=== PATIENT | female | born 1950 | race African-American/Black ===

== ENCOUNTER 2017-02-14 16:29 | Inpatient (IN) | payer MEDICARE, MEDICAID ==
[2017-02-14] MEDS ORDERED: DEXTROSE 50%-WATER SYRINGE 12.5 GM/25 ML DOSE IV PRN (17:55)
[2017-02-14] MEDS ORDERED: DEXTROSE 40% GEL 15 GM TUBE PO PRN (17:55)
[2017-02-14] MEDS ORDERED: DEXTROSE 50%-WATER SYRINGE 25 GM/50 ML DOSE IV PRN (17:55)
[2017-02-14] MEDS ORDERED: DEXTROSE 40% GEL 15 GM TUBE X 2 PO PRN (17:55)
[2017-02-14] MEDS ORDERED: GLUCAGON,HUMAN RECOMB 1 MG INJ IM PRN (17:55)
--- NOTE | 2017-02-14 18:17 | RADIOLOGY REPORT (SQ) ---
EXAM DESCRIPTION: CHEST PA/LAT COMPLETED DATE/TIME: 02/14/2017 6:06 pm REASON FOR STUDY: Afib sob COMPARISON: 05/02/2010 EXAM PARAMETERS: NUMBER OF VIEWS: two views TECHNIQUE: Digital Frontal and Lateral radiographic views of the chest acquired. RADIATION DOSE: NA LIMITATIONS: none FINDINGS: LUNGS AND PLEURA: Small pleural effusions are present. No infiltrate appreciated. MEDIASTINUM AND HILAR STRUCTURES: No masses or contour abnormalities. HEART AND VASCULAR STRUCTURES: Heart size borderline. Mild vascular congestion. No pulmonary edema. BONES: No acute findings. HARDWARE: None in the chest. OTHER: No other significant finding. IMPRESSION: Borderline cardiomegaly with small pleural effusions. There is no chen CHF. TECHNICAL DOCUMENTATION: JOB ID: [id number] [employer]- All Rights Reserved
--- NOTE | 2017-02-14 18:31 | PDOC CONSULTATION ---
Consultation Consult Date: 02/14/17 Attending physician:: NESSA HA Consult reason:: Bradycardia, CHF, atrial fibrillation History of Present Illness Admission Date/PCP: 02/14/17 16:29 NESSA HA Patient complains of: Shortness of breath History of Present Illness: JAVID VARGAS is a 66 year old female who has noted shortness of breath fatigue and tiredness for last several days which has progressively gotten worse. Patient was seen for this reason at her primary care physician's office where an EKG was performed which showed atrial fibrillation. Patient also had BioZ test performed which showed low cardiac output. Patient subsequently admitted. Patient was noted to be bradycardic with heart rate in the low 50s. Patient has noted intermittent dizziness but denied any syncope or near syncope. On questioning she did admit to having occasional tightness in the chest. Patient does have occasional wheezing but denied any history of smoking , alcohol or illicit drug abuse. Patient has noted some pedal edema. Patient denied any significant weight gain recently but claims that recently she has lost some weight. Past Medical History Cardiac Medical History: Reports: Hyperlipidema, Hypertension Denies: Myocardial Infarction Pulmonary Medical History: Denies: Asthma, Bronchitis, Chronic Obstructive Pulmonary Disease (COPD), Pneumonia Neurological Medical History: Denies: Seizures Endocrine Medical History: Reports: Diabetes Mellitus Type 2 Musculoskeltal Medical History: Denies: Arthritis Psychiatric Medical History: Denies: Depression Hematology: Reports: Anemia Past Surgical History Past Surgical History: Reports: Hysterectomy Social History Information Source: Patient - Negative for tobacco alcohol or illicit drug abuse. Smoking Status: Never Smoker Frequency of Alcohol Use: None Hx Recreational Drug Use: No Hx Prescription Drug Abuse: No - Advance Directive Resuscitation Status: Full Code Surrogate healthcare decision maker:: Patient's daughter is the surrogate decision-maker Family History Family History: Hypertension Parental Family History Reviewed: Yes Children Family History Reviewed: Yes Sibling(s) Family History Reviewed.: Yes Medication/Allergy Home Medications: Amlodipine Besylate [Norvasc 10 mg Tablet] 10 mg PO DAILY 02/15/17 Aspirin [Ecotrin 81 mg EC Tablet] 81 mg PO DAILY 02/15/17 Atorvastatin Calcium [Lipitor 40 mg Tablet] 40 mg PO QHS 02/15/17 Cholecalciferol (Vitamin D3) [Vitamin D3] 1,000 unit PO DAILY 02/15/17 Cyanocobalamin (Vitamin B-12) [Vitamin B-12 Inj 1000 Mcg/1 ml Vial] 1,000 mcg IM .MONTHLY 02/15/17 Hydrochlorothiazide [Hydrodiuril 25 mg Tablet] 25 mg PO QAM 02/15/17 Insulin Detemir [Levemir Insulin 300 Units/3 ml Insuln.pen] 15 unit SUBCUT QPM 02/15/17 Insulin Detemir [Levemir Insulin 300 Units/3 ml Insuln.pen] 30 unit SUBCUT QAM 02/15/17 Melatonin 1 mg PO HSP PRN 02/15/17 Metformin HCl [Glucophage] 1,000 mg PO BIDBS 02/15/17 Allergies/Adverse Reactions: No Known Allergies Allergy (Verified 02/09/17 19:00) Review of Systems Review of Systems: Please see history of present illness and past medical history as wall. Constitutional: No fever or chills reported. Head : No recent chronic headaches, recent head injury. Eyes: No recent eye pain, diplopia, redness, discharge, acute visual changes. Ears: No recent chronic ear pain, acute hearing loss, ear discharge. Oral cavity: No recent ulcerations, bleeding, oral cavity discomfort. Neck: No recent acute neck pain reported. Hematologic: No recent easy bruising or bleeding or hematologic malignancy reported. Lymphatic: No recent lymphatic malignancy, chronic lymphadenopathy reported yet Cardiovascular system review: See history of present illness. Respiratory system review: No recent chronic cough, hemoptysis, blood clots in the lungs reported. Shortness of breath on exertion Gastrointestinal system review: Negative for any recent acute or chronic abdominal pain, hematemesis, melena, recent change in bowel habits. Genitourinary system review: No recent acute or chronic hematuria, flank pain, UTI etc. reported. Skin system review: Negative for any recent abnormal bruising, no rash, no pruritus reported. Neurologic: No prior history of strokes, mini strokes, seizure disorder. Psychologic: No history of major psychosis or major depression reported. Musculoskeletal: Minor aches and pains reported. No acute joint swelling reported. Endocrine: No recent polyuria, polydipsia, recent heat or cold intolerance. Physical Exam Vital Signs: Temp Pulse Resp BP Pulse Ox 98.3 F 49 L 18 158/65 H 97 02/14/17 16:51 02/14/17 16:51 02/14/17 16:51 02/14/17 16:51 02/14/17 16:51 Intake & Output 02/13/17 02/14/17 02/15/17 06:59 06:59 06:59 Weight 128.9 kg Exam: GENERAL: well-nourished and in no acute distress. Alert and oriented x3 HEAD: Atraumatic, normocephalic. EYES: Pupils equal round and reactive to light, extraocular movements intact, sclera anicteric, conjunctiva are normal. ENT: TMs normal, nares patent, oropharynx clear without exudates. Moist mucous membranes. No oral ulcerations or bleeding gums noted NECK: supple without lymphadenopathy. Trachea is central. No cervical or axillary lymphadenopathy noted. Carotids are 2+, JVD WNL LUNGS: Respiration seems nonlabored, no significant accessory muscle action noted. Breath sounds clear to auscultation bilaterally and equal noted. No wheezes rales or rhonchi noted. No significant dullness noted on percussion. CHEST: Palpation of the chest wall shows no significant chest wall tenderness. No other significant abnormalities noted. 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 ABDOMEN: Soft, no significant tenderness appreciated, normoactive bowel sounds. No guarding, no rebound. No rigidity noted . No masses appreciated. EXTREMITIES: Pedal pulses are 1-2+, no calf tenderness noted. No clubbing or cyanosis.trace to 1+ pedal edema noted NEUROLOGICAL: Focused neurological exam showed no significant neurologic deficit. Normal speech, no focal weakness appreciated. PSYCH: Normal mood, normal affect. Judgment and insight within normal limits. SKIN: No significant ecchymosis, rash, ulcerations or signs of pruritus noted. MUSCULOSKELETAL EXAM: No significant joint swelling noted. Results EKG Comments: Atrial fibrillation with somewhat slow heart rate response but no acute ST-T wave changes noted. Impressions: Chest X-Ray 02/14/17 00:00 IMPRESSION: Borderline cardiomegaly with small pleural effusions. There is no chen CHF. Assessment & Plan - Diagnosis (1) Bradycardia Is this a current diagnosis for this admission?: Yes (2) Atrial fibrillation Qualifiers: Atrial fibrillation type: unspecified Qualified Code(s): I48.91 - Unspecified atrial fibrillation Is this a current diagnosis for this admission?: Yes (3) Hypertension Qualifiers: Hypertension type: essential hypertension Qualified Code(s): I10 - Essential (primary) hypertension Is this a current diagnosis for this admission?: Yes (4) Dyslipidemia Is this a current diagnosis for this admission?: Yes (5) Obesity Qualifiers: Obesity classification: unspecified obesity classification Is this a current diagnosis for this admission?: Yes (6) Sleep apnea syndrome Qualifiers: Sleep apnea type: unspecified type Qualified Code(s): G47.30 - Sleep apnea , unspecified Is this a current diagnosis for this admission?: Yes (7) Diabetes Qualifiers: Diabetes mellitus type: type 2 Diabetes mellitus complication status: without complication Diabetes mellitus correction insulin use: unspecified customer associate insulin use status Qualified Code(s): E11.9 - Type 2 diabetes mellitus without complications Is this a current diagnosis for this admission?: Yes (8) Chest discomfort Is this a current diagnosis for this admission?: Yes (9) Congestive heart failure Qualifiers: Congestive heart failure type: diastolic Congestive heart failure chronicity: acute Qualified Code(s): I50.31 - Acute diastolic (congestive) heart failure Is this a current diagnosis for this admission?: Yes - Notes Notes: Bradycardia: Currently mild. Continue to observe. Sometimes sleep apnea syndrome can increase vagal tone and cause bradycardia. TSH WNL. Atrial fibrillation: Most likely chronic but unspecified, possibly chronic. A 2D echo results has been scheduled. Patient is a good candidate for chronic anticoagulation based on chads score. Patient started on Eliquis therapy. Continue with it. Hypertension: BP goal should be 135/85 or less. Currently is stable. Dyslipidemia: LDL goal is less than 70. Recommend statin therapy at least intermediate or high dose, of high potency status. Periodic lipid panel and liver panel is indicated. Patient to report any significant muscle discomfort or other side effects.. Obesity: Patient has been encouraged in weight loss. Sleep apnea syndrome: Patient describes a diagnosis of this but has not been on CPAP therapy for several years. Discussed benefit of sleep apnea therapy. Diabetes: Currently is stable. 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 Chest discomfort: Currently stable. Cardiac enzymes initially 1's are negative. To be evaluated with a nuclear stress test. Congestive heart failure: Diastolic most likely precipitated by volume overload and atrial fibrillation. 2D echocardiogram results are pending. IV Lasix 20 mg ordered. To be switched over to p.o. after adequate response is obtained. - Time Time Spent: 30 to 50 Minutes - CODE STATUS was discussed, patient remains full code. Surrogate decision-maker unchanged. Multiple medical problems were addressed. More than 50% of the time spent coordinating care, discussing management plans with involved caregivers. Management plans discussed with involved personnels. Medical decision making was of moderate to high complexity , patient's has multiple comorbidities. Medications reviewed and adjusted accordingly: Yes
--- NOTE | 2017-02-14 18:47 | EKG REPORT ---
SEVERITY:- ABNORMAL ECG - ATRIAL FIBRILLATION BORDERLINE LEFT AXIS DEVIATION ABNRM R PROG, CONSIDER ASMI OR LEAD PLACEMENT NONSPECIFIC T ABNORMALITIES, LATERAL LEADS : Confirmed by: Tanner Rhodes MD 14-Feb-2017 18:46:45
[2017-02-14 19:10] LABS: ABSOLUTE EOSINOPHILS # (AUTO) 0.1 10^3/uL (0.0-0.6); ABSOLUTE LYMPHOCYTES (AUTO) 1.7 10^3/uL (0.5-4.7); ABSOLUTE MONOCYTES (AUTO) 0.7 10^3/uL (0.1-1.4); ABSOLUTE NEUT (AUTO) 6.6 10^3/uL (1.7-8.2); BASOPHILS % (AUTO) 0.4 % (0-2); HEMATOCRIT 39.8 % (36.0-47.0); HEMOGLOBIN 12.9 g/dL (12.0-15.5); HGB HCT DIFFERENCE -1.1; LYMPHOCYTES % (AUTO) 18.8 % (13-45); MEAN CORPUSCULAR HEMOGLOBIN 26.3 pg (27.0-33.4); MEAN CORPUSCULAR HGB CONC 32.5 g/dL (32.0-36.0); MEAN CORPUSCULAR VOLUME 81 fl (80-97); MONOCYTES % (AUTO) 7.3 % (3-13); RED BLOOD COUNT 4.92 10^6/uL (3.72-5.28); RED CELL DISTRIBUTION WIDTH 18.3 % (11.5-14.0); SEGMENTED NEUTROPHILS % (AUTO) 72.5 % (42-78); WHITE BLOOD COUNT 9.1 10^3/uL (4.0-10.5)
[2017-02-14 19:28] LABS: ALANINE AMINOTRANSFERASE 28 U/L (9-52); ALBUMIN 3.8 g/dL (3.5-5.0); ALKALINE PHOSPHATASE 110 U/L (38-126); ANION GAP 12 (5-19); ASPARTATE AMINO TRANSFERASE 21 U/L (14-36); BILIRUBIN,DIRECT 0.4 mg/dL (0.0-0.4); BILIRUBIN,TOTAL 0.8 mg/dL (0.2-1.3); BLOOD UREA NITROGEN 13 mg/dL (7-20); CALCIUM 9.7 mg/dL (8.4-10.2); CARBON DIOXIDE 31 mmol/L (22-30); CHLORIDE 100 mmol/L (98-107); CREATINE KINASE 82 U/L (30-135); CREATININE RESULT 1.12 mg/dL (0.52-1.25); GLUCOSE 105 mg/dL (75-110); POTASSIUM 3.4 mmol/L (3.6-5.0); SODIUM 143.4 mmol/L (137-145); TOTAL PROTEIN 7.1 g/dL (6.3-8.2)
--- NOTE | 2017-02-14 19:30 | PDOC H&P ---
History of Present Illness Admission Date/PCP: 02/14/17 16:29 NESSA LELAND Patient complains of: Shortness of breath History of Present Illness: JAVID VARGAS is a 66 year old female known to my practice who presented too the office for routine follow up management of her comorbidities but narrated worsening difficulty with breathing with minimal exertion. Patient reported that ordinary walking or climbing stairs caused her shortness of breath to be more noticeable. Patient reported been on holiday recently with exposure to cigarette smoke and subsequently have been short of breath. She denied any prior history or exposure to cigarette smoking. Shew denied any alcohol or recreational drug usage. She reported episodes of wheezing, postural dizziness, chest tightness, and noted some degree of swelling in her legs. In view of her symptoms constellation she had 12 lead EKG in the office that revealed atrial fibrillation with bradycardia. Also, her impedence cardiograph revealed significantly elevated blood pressure, impaired cardiac indices and elevated peripheral vascular resistance. She was subsequently advised hospitalization for further evaluation and management. Past Medical History Cardiac Medical History: Reports: Hyperlipidema, Hypertension Denies: Myocardial Infarction Pulmonary Medical History: Denies: Asthma, Bronchitis, Chronic Obstructive Pulmonary Disease (COPD), Pneumonia Neurological Medical History: Denies: Seizures Endocrine Medical History: Reports: Diabetes Mellitus Type 2 Musculoskeltal Medical History: Denies: Arthritis Psychiatric Medical History: Denies: Depression Hematology: Reports: Anemia Past Surgical History Past Surgical History: Reports: Hysterectomy Social History Smoking Status: Never Smoker Frequency of Alcohol Use: None Hx Recreational Drug Use: No Hx Prescription Drug Abuse: No - Advance Directive Resuscitation Status: Full Code Family History Family History: Hypertension Parental Family History Reviewed: Yes Children Family History Reviewed: Yes Sibling(s) Family History Reviewed.: Yes Medication/Allergy Home Medications: Aspirin [Anupama Chewable] 81 mg PO DAILY 06/22/13 Cyanocobalamin (Vitamin B-12) [Vitamin B-12] 100 mcg IM Q30MP 06/22/13 Hydrochlorothiazide 25 mg PO DAILY 06/22/13 Insulin Detemir [Levemir Insulin 100 units/mL] 16 units SUBCUT QHS 06/22/13 Insulin Detemir [Levemir Insulin 100 units/mL] 30 units SUBCUT QAM 06/22/13 Lisinopril [Prinivil 40 mg Tablet] 40 mg PO DAILY 06/22/13 Metformin HCl [Glucophage] 1,000 mg PO BID 06/22/13 Multivitamin [Multi Vitamin Daily] 1 tab PO DAILY 06/22/13 Simvastatin 20 mg PO QHS 06/22/13 Diphenhydramine HCl [Benadryl 50 mg Capsule] 1 cap PO Q6 PRN #14 capsule Promethazine HCl [Phenergan 25 mg Tablet] 25 mg PO Q4HP PRN #10 tablet 02/09/17 Allergies/Adverse Reactions: No Known Allergies Allergy (Verified 02/09/17 19:00) Review of Systems Constitutional: ABSENT: chills, fever(s), headache(s), weight gain, weight loss Eyes: ABSENT: visual disturbances Ears: ABSENT: hearing changes Nose, Mouth, and Throat: ABSENT: headache(s), sore throat, vertigo Cardiovascular: PRESENT: dyspnea on exertion, edema, other - chest tightness Respiratory: PRESENT: dyspnea. ABSENT: as per HPI, cough, hemoptysis, sputum, other Gastrointestinal: ABSENT: abdominal pain, constipation, diarrhea, hematemesis, hematochezia, nausea, vomiting Musculoskeletal: ABSENT: joint swelling Integumentary: ABSENT: rash, wounds Neurological: PRESENT: dizziness. ABSENT: as per HPI, abnormal gait, abnormal movements, abnormal speech, confusion, convulsions, focal weakness, frequent falls, lack of coordination, memory loss, numbness, paresthesias, restless legs , syncope, tingling, tremor(s), vertigo, weakness, other Psychiatric: ABSENT: anxiety, depression, homidical ideation, suicidal ideation Endocrine: PRESENT: menstrual abnormalities. ABSENT: cold intolerance, heat intolerance, polydipsia, polyuria Hematologic/Lymphatic: ABSENT: easy bleeding, easy bruising, lymphadenopathy Allergic/Immunologic: ABSENT: seasonal rhinorrhea Physical Exam Vital Signs: Temp Pulse Resp BP Pulse Ox 98.3 F 49 L 18 158/65 H 97 02/14/17 16:51 02/14/17 16:51 02/14/17 16:51 02/14/17 16:51 02/14/17 16:51 Intake & Output 02/13/17 02/14/17 02/15/17 06:59 06:59 06:59 Intake Total 247 Balance 247 Weight 128.9 kg General appearance: PRESENT: no acute distress, morbidly obese Head exam: PRESENT: atraumatic, normocephalic Eye exam: PRESENT: conjunctiva pink, EOMI, PERRLA. ABSENT: scleral icterus Ear exam: PRESENT: normal external ear exam Mouth exam: PRESENT: moist, tongue midline Throat exam: ABSENT: post pharyngeal erythema, tonsillar erythema, tonsillar exudate, tonsillogmegaly, other Neck exam: PRESENT: full ROM. ABSENT: carotid bruit, JVD, lymphadenopathy, thyromegaly Respiratory exam: PRESENT: clear to auscultation khushbu, decreased breath sounds Cardiovascular exam: PRESENT: bradycardia, irregular rhythm, +S1, +S2, systolic murmur Murmur grade: 2 - loudest at A2 and LLSB regions Pulses: PRESENT: normal dorsalis pedis pul, +2 pedal pulses bilateral Vascular exam: PRESENT: normal capillary refill GI/Abdominal exam: PRESENT: normal bowel sounds, soft. ABSENT: distended, guarding, mass, organolmegaly, rebound, tenderness Rectal exam: PRESENT: deferred Gentrourinary exam: ABSENT: ecchymosis, erythema, lacerations, lesions, urethral discharge, indwelling catheter, other Extremities exam: PRESENT: pedal edema - bilateral 2+ pitting edema to below knee joint level Musculoskeletal exam: PRESENT: deformity - related to multiple jpints involvement with arthriis Neurological exam: PRESENT: alert, awake, oriented to person, oriented to place , oriented to time, oriented to situation, CN II-XII grossly intact. ABSENT: motor sensory deficit Psychiatric exam: PRESENT: appropriate affect, normal mood. ABSENT: homicidal ideation, suicidal ideation Skin exam: PRESENT: dry, intact, warm. ABSENT: cyanosis, rash Results Laboratory Results: Pending lab results at the time of my bedside consultation. Impressions: Chest X-Ray 02/14/17 00:00 IMPRESSION: Borderline cardiomegaly with small pleural effusions. There is no chen CHF. Assessment & Plan - Diagnosis (1) Atrial fibrillation Qualifiers: Atrial fibrillation type: unspecified Qualified Code(s): I48.91 - Unspecified atrial fibrillation Is this a current diagnosis for this admission?: Yes Plan: See admitting attending physician orders. (2) Dyspnea on exertion Is this a current diagnosis for this admission?: Yes Plan: See admitting attending physician orders. (3) Bradycardia Is this a current diagnosis for this admission?: Yes Plan: See admitting attending physician orders. (4) Chest discomfort Is this a current diagnosis for this admission?: Yes Plan: See admitting attending physician orders. (5) Diabetes mellitus type 2 in obese Is this a current diagnosis for this admission?: Yes Plan: See admitting attending physician orders. (6) HTN (hypertension) Qualifiers: Hypertension type: essential hypertension Qualified Code(s): I10 - Essential (primary) hypertension Is this a current diagnosis for this admission?: Yes Plan: See admitting attending physician orders. (7) HLD (hyperlipidemia) Qualifiers: Hyperlipidemia type: pure hypercholesterolemia Qualified Code(s): E78.00 - Pure hypercholesterolemia, unspecified; E78.0 - Pure hypercholesterolemia Is this a current diagnosis for this admission?: Yes Plan: See admitting attending physician orders. (8) Morbid obesity with BMI of 45.0-49.9, adult Is this a current diagnosis for this admission?: Yes Plan: See admitting attending physician orders. (9) Sleep apnea syndrome Qualifiers: Sleep apnea type: unspecified type Qualified Code(s): G47.30 - Sleep apnea , unspecified Is this a current diagnosis for this admission?: Yes Plan: See admitting attending physician orders. - Time Time Spent: Greater than 70 Minutes Medications reviewed and adjusted accordingly: Yes Anticipated discharge: Home Within: within 48 hours - Inpatient Certification Post Hospital Care: D/C Hand Coremaker Documentation - Plan Summary Plan Summary: See admitting attending physician orders. Significant amount was in care coordination ad discussion with patient regarding her medication condition and possible etiologies, necessary treatment with regard to atrial fibrillation and anticoagulation therapy. Patient is not very much in agreement with full admission at this time. If her condition arise I will change her status to full admission. I will request cardiology consultation with Dr Valverde.
[2017-02-14 19:41] LABS: CREATINE KINASE MB 0.51 ng/mL (<4.55); TROPONIN I 0.015 ng/mL
[2017-02-14] MEDS ORDERED: FUROSEMIDE INJ/PF 20 MG/2 ML SDV IV ONE (20:00)
[2017-02-14 20:36] LABS: PROTHROMBIN TIME 13.6 SEC (11.4-15.4)
[2017-02-14] MEDS: APIXABAN 5 MG TABLET PO SCH (22:09)
[2017-02-15 01:29] LABS: CREATINE KINASE MB 0.65 ng/mL (<4.55); TROPONIN I 0.058 ng/mL
[2017-02-15 07:30] LABS: CHOLESTEROL 156.38 mg/dL (0-200); Direct HDL 36 mg/dL (>40); TRIGLYCERIDES 90 mg/dL (<150)
[2017-02-15 07:40] LABS: DIRECT LDL 107 mg/dL (<100)
[2017-02-15 07:41] LABS: CREATINE KINASE MB 0.56 ng/mL (<4.55); TROPONIN I 0.047 ng/mL
[2017-02-15] MEDS: LANSOPRAZOLE 30 MG TAB.RAP.DR PO SCH (08:59)
[2017-02-15] MEDS: VALSARTAN 40 MG TABLET PO SCH (11:00)
[2017-02-15] MEDS: APIXABAN 5 MG TABLET PO SCH ×2 (11:01→22:36)
[2017-02-15] MEDS: FUROSEMIDE 40 MG TABLET PO SCH (11:01)
[2017-02-15] MEDS: POTASSIUM CHLORIDE 20 MEQ/15 ML UDCUP PO SCH ×2 (11:01→22:35)
[2017-02-15] MEDS ORDERED: (PENDING PHARMACY ID) (Melatonin [Melatonin] 1 MG) PO PRN (11:09)
[2017-02-15] MEDS ORDERED: AMINOPHYLLINE INJ/PF 250 MG/10 ML SDV IV ONE (11:52)
[2017-02-15] MEDS ORDERED: REGADENOSON INJ 0.4 MG/5 ML DISP.SYRIN IV ONE (11:52)
[2017-02-15] MEDS ORDERED: ASPIRIN 81 MG TABLET, ENT COATED PO ONE (12:00)
[2017-02-15] MEDS ORDERED: HYDROCHLOROTHIAZIDE 25 MG TABLET PO ONE (12:00)
[2017-02-15] MEDS ORDERED: CHOLECALCIFEROL (D3) 1,000 UNIT TABLET PO ONE (12:00)
[2017-02-15] MEDS ORDERED: AMLODIPINE BESYLATE 10 MG TABLET PO ONE (12:00)
[2017-02-15] MEDS ORDERED: SITAGLIPTIN PHOSPHATE 50 MG TABLET PO ONE (12:00)
--- NOTE | 2017-02-15 15:34 | DRAGON STRESS TEST REPORT ---
INTRAVENOUS LEXISCAN CARDIOLITE STRESS TEST USING SINGLE PHOTON EMMISION COMPUTERIZED TOMOGRAPHIC. DATE OF PROCEDURE: February 15, 2017 INDICATION : Atrial fibrillation and dyspnea CARDIAC RISK FACTORS: Diabetes, hypertension RESTING EKG: Atrial fibrillation with minor nonspecific ST T-wave changes STRESS EKG: No significant changes noted with LexiScan bolus REASON FOR TERMINATION: Protocol. PROCEDURE REPORT: Baseline heart rate 62 beats per minute with blood pressure of 153/70. Patient had no significant complaints. Heart rate at 2 minutes post bolus 66 with a blood pressure of 187/82. 3 minutes post bolus heart rate 66 with blood pressure of 181/81. No significant EKG changes were noted. Patient had no significant complaints during the procedure or postprocedure. Patient injected with Aminophyllin 75 mg at 3 minutes or later after Lexiscan bolus. CONCLUSIONS: Normal EKG and hemodynamic response to IV LexiScan. NUCLEAR DATA: At rest the patient was given 15.81 millicuries of technetium 99 sestamibi injected intravenously. As per protocol rest gated SPECT images were obtained. Subsequently the patient was given intravenous LexiScan at a dose of 0.4 mg in 5 mL intravenously, followed by flush with normal saline. Subsequently the stress dose of 45.9 millicuries of technetium 99 sestamibi was injected intravenously. As per protocol stress gated images were obtained. NUCLEAR INTERPRETATION: Both raw and processed data were used for interpretation. Visual, qualitative, computer-generated quantitative data was used. There was good myocardial uptake of technetium compound. Motion artifact and soft tissue attenuations were noted. Increased visceral uptake was noted. No definitive areas of transient perfusion defect noted. No definitive areas of fixed perfusion defect or scars noted. Marked increased breast attenuation artifact were noted which cause difficulty with interpretation of anterior wall perfusion. EKG gated imaging showed LV EF at 62 %, rest and stress gated EF similar visually. T. I D. ratio was 1.02. Lung heart ratio noted to be within normal limits 0.53. No significant extracardiac and abnormal radiotracer activities were noted. RV free wall uptake was noted to be borderline increased. IMPRESSION: Also refer to comments under nuclear interpretation. Also test results needs to be interpreted in the context of pretest probability. Low confidence on anterior wall perfusion because of marked increased breast attenuation artifact. However following observations can be made. 1. There is no definitive scintigraphic evidence of LexiScan induced myocardial ischemia. 2. There is no definitive scintigraphic evidence of myocardial infarction/scar. 3. EKG gated imaging shows left ventricular ejection fraction of approximately 62 %. 4. Lung uptake was noted to be increased. This could be related to interstitial lung disease, CHF. Would recommend CT/CTA of the chest. 4. Clinical correlation requested as occasionally single vessel disease or balanced ischemia could be missed. In approximately 10% of the cases Lexiscan may not cause adequate vasodilatory stress. RECOMMENDATIONS: Aggressive risk factor modification, medical therapy. Clinical correlation with echocardiogram derived ejection fraction. Inability to exercise by itself can lead to increased cardiovascular event risks. Jae Valverde M.D., [facility]PITALSandra Cartography/Mapping Technician dance director, Board certified in cardiovascular diseases, Nuclear cardiology, Echocardiography Cardiac CT and cardiac MRI Ph. [phone] [facility]
[2017-02-15] MEDS: METFORMIN HCL 500 MG TABLET PO SCH (17:28)
--- NOTE | 2017-02-15 17:29 | PDOC PROGRESS REPORT ---
Subjective Progress Note for:: 02/15/17 Subjective:: Patient reported some improvement in her breathing but most at rest. Her cardiac enzymes evaluation did revealed slight indeterminate range Troponin level. Her cadiolite stress test was suggestive of possible interstitial lung disease versus CHF due to more than necessary isotope uptake. She denied any definite chest pain. No nausea or vomiting. No abdominal pain. No reported fever or chills. Physical Exam Vital Signs: Temp Pulse Resp BP Pulse Ox 97.9 F 50 L 18 181/69 H 99 02/15/17 11:22 02/15/17 11:22 02/15/17 11:22 02/15/17 11:22 02/15/17 11:22 Intake & Output 02/14/17 02/15/17 02/16/17 06:59 06:59 06:59 Intake Total 249 Balance 249 Weight 129.6 kg General appearance: PRESENT: no acute distress, morbidly obese Head exam: PRESENT: atraumatic, normocephalic Eye exam: PRESENT: conjunctiva pink, EOMI, PERRLA. ABSENT: scleral icterus Respiratory exam: PRESENT: clear to auscultation khushbu Cardiovascular exam: PRESENT: irregular rhythm, +S1, +S2, systolic murmur Murmur grade: 2 - loudest at A2 and LLSB regions GI/Abdominal exam: PRESENT: normal bowel sounds, soft. ABSENT: distended, guarding, mass, organolmegaly, rebound, tenderness Extremities exam: PRESENT: pedal edema - improving bilateral 1+ pitting edema. Musculoskeletal exam: PRESENT: deformity - related to multiple joints involvememt with arthritis Neurological exam: PRESENT: alert, awake, oriented to person, oriented to place , oriented to time, oriented to situation, CN II-XII grossly intact. ABSENT: motor sensory deficit Psychiatric exam: PRESENT: appropriate affect, normal mood. ABSENT: homicidal ideation, suicidal ideation Skin exam: PRESENT: dry, intact, warm. ABSENT: cyanosis, rash Results Laboratory Results: 02/14/17 18:50 02/14/17 18:50 02/14/17 02/14/17 02/14/17 18:50 18:50 18:50 WBC 9.1 RBC 4.92 Hgb 12.9 Hct 39.8 MCV 81 MCH 26.3 L MCHC 32.5 RDW 18.3 H Plt Count 287 Seg Neutrophils % 72.5 Lymphocytes % 18.8 Monocytes % 7.3 Eosinophils % 1.0 Basophils % 0.4 Absolute Neutrophils 6.6 Absolute Lymphocytes 1.7 Absolute Monocytes 0.7 Absolute Eosinophils 0.1 Absolute Basophils 0.0 Sodium 143.4 Potassium 3.4 L Chloride 100 Carbon Dioxide 31 H Anion Gap 12 BUN 13 Creatinine 1.12 Est GFR ( Amer) 59 L Est GFR (Non-Af Amer) 49 L Glucose 105 Calcium 9.7 Total Bilirubin 0.8 AST 21 ALT 28 Alkaline Phosphatase 110 Total Protein 7.1 Albumin 3.8 Triglycerides Cholesterol LDL Cholesterol Direct VLDL Cholesterol HDL Cholesterol TSH 0.94 02/15/17 06:35 WBC RBC Hgb Hct MCV MCH MCHC RDW Plt Count Seg Neutrophils % Lymphocytes % Monocytes % Eosinophils % Basophils % Absolute Neutrophils Absolute Lymphocytes Absolute Monocytes Absolute Eosinophils Absolute Basophils Sodium Potassium Chloride Carbon Dioxide Anion Gap BUN Creatinine Est GFR ( Amer) Est GFR (Non-Af Amer) Glucose Calcium Total Bilirubin AST ALT Alkaline Phosphatase Total Protein Albumin Triglycerides 90 Cholesterol 156.38 LDL Cholesterol Direct 107 H VLDL Cholesterol 18.0 HDL Cholesterol 36 L TSH 02/14/17 02/14/17 02/14/17 18:50 18:50 18:50 Creatine Kinase 82 CK-MB (CK-2) 0.51 Troponin I 0.015 NT-Pro-B Natriuret Pep 979 H 02/15/17 02/15/17 02/15/17 00:42 00:42 06:35 Creatine Kinase 80 70 CK-MB (CK-2) 0.65 Troponin I 0.058 NT-Pro-B Natriuret Pep 02/15/17 06:35 Creatine Kinase CK-MB (CK-2) 0.56 Troponin I 0.047 NT-Pro-B Natriuret Pep Impressions: Chest X-Ray 02/14/17 00:00 IMPRESSION: Borderline cardiomegaly with small pleural effusions. There is no chen CHF. Assessment & Plan - Diagnosis (1) Atrial fibrillation Qualifiers: Atrial fibrillation type: unspecified Qualified Code(s): I48.91 - Unspecified atrial fibrillation Is this a current diagnosis for this admission?: Yes (2) Dyspnea on exertion Is this a current diagnosis for this admission?: Yes (3) Bradycardia Is this a current diagnosis for this admission?: Yes (4) Chest discomfort Is this a current diagnosis for this admission?: Yes (5) Diabetes mellitus type 2 in obese Is this a current diagnosis for this admission?: Yes (6) HTN (hypertension) Qualifiers: Hypertension type: essential hypertension Qualified Code(s): I10 - Essential (primary) hypertension Is this a current diagnosis for this admission?: Yes (7) HLD (hyperlipidemia) Qualifiers: Hyperlipidemia type: pure hypercholesterolemia Qualified Code(s): E78.00 - Pure hypercholesterolemia, unspecified; E78.0 - Pure hypercholesterolemia Is this a current diagnosis for this admission?: Yes (8) Morbid obesity with BMI of 45.0-49.9, adult Is this a current diagnosis for this admission?: Yes (9) Sleep apnea syndrome Qualifiers: Sleep apnea type: unspecified type Qualified Code(s): G47.30 - Sleep apnea , unspecified Is this a current diagnosis for this admission?: Yes - Time Time Spent with patient: 25-34 minutes Medications reviewed and adjusted accordingly: Yes Anticipated discharge: Home Within: Other - Inpatient Certification Based on my medical assessment, after consideration of the patient's comorbidities, presenting symptoms, or acuity I expect that the services needed warrant INPATIENT care.: Yes I certify that my determination is in accordance with my understanding of Medicare's requirements for reasonable and necessary INPATIENT services [42 CFR 412.3e].: Yes Medical Necessity: Need Close Monitoring Due to Risk of Patient Decompensation, Need For Continuous Telemetry Monitoring, Risk of Complication if Not Cared For in Hospital Post Hospital Care: D/C Production Coordinator Documentation - Plan Summary Plan Summary: D/C HCTZ and Amlodipine in view of her persistent bradycardia. She will continue on Valsartan and Furosemide for HTN management. She will remain on all other current medication management. We will follow up on requested CTA chest for further evaluation of her abnormal stress test isotope findings. Monitor and adjust Valsartan dosage if her blood pressure is elevated. Obtain BMP in am.
--- NOTE | 2017-02-15 17:57 | RADIOLOGY REPORT (SQ) ---
EXAM DESCRIPTION: CTA CHEST COMPLETED DATE/TIME: 02/15/2017 5:17 pm REASON FOR STUDY: Atrial fibrillation, chest pain R07.9 CHEST PAIN, UNSPECIFIED R53.82 CHRONIC FAT IGUE, UNSPECIFIED R06.09 OTHER FORMS OF DYSPNEA COMPARISON: None. TECHNIQUE: CT scan of the chest performed using helical scanning technique with dynamic intravenous contrast injection. Images reviewed with lung, soft tissue and bone windows. Reconstructed coronal and sagittal MPR images reviewed. Additional 3 dimensional post-processing performed to develop Maximal Intensity Projection images ([place] P). All images stored on PACS. All CT scanners at this facility use dose modulation, iterative reconstruction, and/or weight based d osing when appropriate to reduce radiation dose to as low as reasonably achievable (ALARA). [facility]: Dose Right [facility]: CareDose [facility]: Dose Right [facility]: Teradose 4D [facility]: TapMetrics CONTRAST TYPE AND DOSE: contrast/concentration: Isovue 370.00 mg/ml; Total Contrast Delivered: 86.0 ml; Total Saline Delivered: 70.0 ml Contrast bolus optimized for the pulmonary arteries. Not diagnostic for the aorta. RENAL FUNCTION: Creatinine 1.1 BUN 13 RADIATION DOSE: Up-to-date CT equipment and radiation dose reduction techniques were employed. CTDIv ol: 50.0 - 70.3 mGy. DLP: 1838 mGy-cm. . LIMITATIONS: None. FINDINGS: LUNGS AND PLEURA: Minimal pleural effusions. No infiltrates or masses. AORTA AND GREAT VESSELS: No aneurysm. Contrast bolus not optimized for the aorta. HEART: No pericardial effusion. No significant coronary artery calcifications. PULMONARY ARTERIES: No emboli visualized in the main pulmonary arteries or the segmental branches. HILAR AND MEDIASTINAL STRUCTURES: No identified masses or abnormal nodes. HARDWARE: None in the chest. UPPER ABDOMEN: No significant findings. Limited exam. THYROID AND OTHER SOFT TISSUES: No masses. No adenopathy. BONES: Bridging osteophytes in the thoracic spine. No osseous lesions. 3D MIPS: Confirm above findings. OTHER: No other significant finding. IMPRESSION: NORMAL CTA OF THE CHEST. NO PULMONARY EMBOLI. COMMENT: Quality ID # [id number]: Final reports with documentation of one or more dose reduction techniques (e.g., Automated exposure control, adjustment of the mA and/or kV according to patient size, use of iterative reconstruction technique) TECHNICAL DOCUMENTATION: JOB ID: [id number]- All Rights Reserved
[2017-02-15] MEDS ORDERED: INSULIN DETEMIR 100 UNIT/ML 3 ML PEN SUBCUT SCH (18:00)
[2017-02-15] MEDS: INSULIN LISPRO 100 UNIT/ML 3 ML VIAL SUBCUT PRN (18:15)
[2017-02-15] MEDS ORDERED: ATORVASTATIN CALCIUM 40 MG TABLET PO SCH (22:00)
[2017-02-15] MEDS: INSULIN DETEMIR 100 UNIT/ML 3 ML PEN SUBCUT SCH (22:35)
[2017-02-15] MEDS: ATORVASTATIN CALCIUM 40 MG TABLET PO SCH (22:35)
[2017-02-16] MEDS ORDERED: HYDROCHLOROTHIAZIDE 25 MG TABLET PO SCH (08:00)
[2017-02-16] MEDS: METFORMIN HCL 500 MG TABLET PO SCH ×2 (08:57→16:29)
[2017-02-16] MEDS: LANSOPRAZOLE 30 MG TAB.RAP.DR PO SCH (08:58)
[2017-02-16] MEDS: INSULIN DETEMIR 100 UNIT/ML 3 ML PEN SUBCUT SCH ×2 (08:59→21:20)
[2017-02-16] MEDS: APIXABAN 5 MG TABLET PO SCH ×2 (09:03→21:20)
[2017-02-16] MEDS: CHOLECALCIFEROL (D3) 1,000 UNIT TABLET PO SCH (09:03)
[2017-02-16] MEDS: POTASSIUM CHLORIDE 20 MEQ/15 ML UDCUP PO SCH ×2 (09:03→21:20)
[2017-02-16] MEDS: VALSARTAN 40 MG TABLET PO SCH (09:04)
[2017-02-16] MEDS: AMLODIPINE BESYLATE 10 MG TABLET PO SCH (09:04)
[2017-02-16] MEDS: FUROSEMIDE 40 MG TABLET PO SCH (09:05)
[2017-02-16] MEDS: SITAGLIPTIN PHOSPHATE 50 MG TABLET PO SCH (09:58)
[2017-02-16] MEDS ORDERED: (PENDING PHARMACY ID) (Cholecalciferol (Vitamin D3) [Vitamin D3] 1,000 UNIT) PO SCH (10:00)
[2017-02-16] MEDS ORDERED: ASPIRIN 81 MG TABLET, ENT COATED PO SCH (10:00)
[2017-02-16] MEDS ORDERED: (PENDING PHARMACY ID) (Linagliptin [Tradjenta] 5 MG) PO SCH (10:00)
--- NOTE | 2017-02-16 10:58 | PDOC PROGRESS REPORT ---
Subjective Progress Note for:: 02/15/17 Subjective:: SOB better, patient claims she felt much better after IV Lasix dose. Today to be switched to p.o. Lasix. Nuclear stress test procedure was explained to the patient in detail. Risks benefits were discussed and informed consent was obtained. Alternatives were discussed. Patient informed that based on risk factors, physical exam, lab data findings and symptoms there is at least intermediate probability of underlying CAD. Nuclear stress test procedure was therefore scheduled. Patient questions answered. Telemetry strips shows atrial fibrillation with controlled ventricular response. Physical Exam Vital Signs: Temp Pulse Resp BP Pulse Ox 97.8 F 48 L 16 151/52 H 98 02/15/17 15:20 02/15/17 15:20 02/15/17 15:20 02/15/17 15:20 02/15/17 15:20 Intake & Output 02/14/17 02/15/17 02/16/17 06:59 06:59 06:59 Intake Total 249 741 Balance 249 741 Weight 129.6 kg Exam: GENERAL: well-nourished and in no acute distress. Alert and oriented x3 HEAD: Atraumatic, normocephalic. EYES: Pupils equal round and reactive to light, extraocular movements intact, sclera anicteric, conjunctiva are normal. ENT: TMs normal, nares patent, oropharynx clear without exudates. Moist mucous membranes. No oral ulcerations or bleeding gums noted NECK: supple without lymphadenopathy. Trachea is central. No cervical or axillary lymphadenopathy noted. Carotids are 2+, JVD WNL LUNGS: Respiration seems nonlabored, no significant accessory muscle action noted. Breath sounds clear to auscultation bilaterally and equal noted. No wheezes rales or rhonchi noted. No significant dullness noted on percussion. CHEST: Palpation of the chest wall shows no significant chest wall tenderness. No other significant abnormalities noted. 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 ABDOMEN: Soft, no significant tenderness appreciated, normoactive bowel sounds. No guarding, no rebound. No rigidity noted . No masses appreciated. EXTREMITIES: Pedal pulses are 1-2+, no calf tenderness noted. No clubbing or cyanosis.trace to 1+ pedal edema noted NEUROLOGICAL: Focused neurological exam showed no significant neurologic deficit. Normal speech, no focal weakness appreciated. PSYCH: Normal mood, normal affect. Judgment and insight within normal limits. SKIN: No significant ecchymosis, rash, ulcerations or signs of pruritus noted. MUSCULOSKELETAL EXAM: No significant joint swelling noted. Results Laboratory Results: 02/14/17 18:50 02/14/17 18:50 02/15/17 06:35 Triglycerides 90 Cholesterol 156.38 LDL Cholesterol Direct 107 H VLDL Cholesterol 18.0 HDL Cholesterol 36 L 02/14/17 02/14/17 02/14/17 18:50 18:50 18:50 Creatine Kinase 82 CK-MB (CK-2) 0.51 Troponin I 0.015 NT-Pro-B Natriuret Pep 979 H 02/15/17 02/15/17 02/15/17 00:42 00:42 06:35 Creatine Kinase 80 70 CK-MB (CK-2) 0.65 Troponin I 0.058 NT-Pro-B Natriuret Pep 02/15/17 06:35 Creatine Kinase CK-MB (CK-2) 0.56 Troponin I 0.047 NT-Pro-B Natriuret Pep Impressions: Chest X-Ray 02/14/17 00:00 IMPRESSION: Borderline cardiomegaly with small pleural effusions. There is no chen CHF. Chest/Abdomen CTA 02/15/17 15:41 IMPRESSION: NORMAL CTA OF THE CHEST. NO PULMONARY EMBOLI. Assessment & Plan - Diagnosis (1) Bradycardia Is this a current diagnosis for this admission?: Yes (2) Atrial fibrillation Qualifiers: Atrial fibrillation type: unspecified Qualified Code(s): I48.91 - Unspecified atrial fibrillation Is this a current diagnosis for this admission?: Yes (3) Hypertension Qualifiers: Hypertension type: essential hypertension Qualified Code(s): I10 - Essential (primary) hypertension Is this a current diagnosis for this admission?: Yes (4) Dyslipidemia Is this a current diagnosis for this admission?: Yes (5) Obesity Qualifiers: Obesity classification: unspecified obesity classification Is this a current diagnosis for this admission?: Yes (6) Sleep apnea syndrome Qualifiers: Sleep apnea type: unspecified type Qualified Code(s): G47.30 - Sleep apnea , unspecified Is this a current diagnosis for this admission?: Yes (7) Diabetes Qualifiers: Diabetes mellitus type: type 2 Diabetes mellitus complication status: without complication Diabetes mellitus group home insulin use: unspecified intermodal owner operator truck driver insulin use status Qualified Code(s): E11.9 - Type 2 diabetes mellitus without complications Is this a current diagnosis for this admission?: Yes (8) Chest discomfort Is this a current diagnosis for this admission?: Yes - Notes Notes: Bradycardia: Stable. No sustained symptomatic bradycardia episodes noted. Continue to observe. Sometimes sleep apnea syndrome can increase vagal tone and cause bradycardia. Atrial fibrillation: Most likely chronic but unspecified, possibly chronic. 2D echo shows normal LVEF with diastolic dysfunction. Patient is a good candidate for chronic anticoagulation based on chads score. Patient on Eliquis. Hypertension: Reasonably well controlled. Blood pressure goal in this patient is 135/85 or less. This was discussed with the patient. Currently blood pressure under reasonable control. Better medication for this patient are DENZEL inhibitor/ARB/beta candi etc. discussed side effects of uncontrolled hypertension and also severe hypotension. Currently blood pressure is stable. Dyslipidemia: Hyperlipidemia: LDL goal is less than 70. Recommend statin therapy at least intermediate or high dose, of high potency status. Periodic lipid panel and liver panel is indicated. Patient to report any significant muscle discomfort or other side effects. Obesity: Patient has been encouraged in weight loss. Sleep apnea syndrome: Patient describes a diagnosis of this but has not been on CPAP therapy for several years. Discussed benefit of sleep apnea therapy. Diabetes: Currently is stable. Will leave management to studio producer. Chest discomfort: Nuclear stress test results were difficult to interpret because of body habitus. No definitive transient or fixed perfusion defect noted although anterior wall perfusion was difficult to assess. Lung heart ratio was noted to be increased and therefore patient was scheduled for a CTA of the chest. Results pending at the time of dictation. - Time Time with patient: Greater than 35 minutes - Patient was seen multiple times. Total time exceeds 40 minutes. In the morning nuclear stress test procedure, risks benefits, alternatives were discussed. Patient seen during the stress test. Patient also seen after stress test when results were discussed with the patient in detail. Patient's questions were answered. Nuclear stress test results were discussed with the patient. Patient was informed that no definitive evidence of pharmacologic stress-induced ischemia noted. No definite fixed defects were noted. Patient informed that occasionally significant single vessel disease or balanced ischemia could be missed. However based on the current study results, would recommend aggressive risk factor modification and medical therapy. It may also be worthwhile to consider evaluation or empiric management of other causes of chest pain. Should no other cause be found and if persistent in having chest pain, then cardiac catheterization should be considered. Right now, recommendations are for aggressive risk factor modification and medical management. Significant time spent discussing management plans especially discussed results of nuclear stress test, echocardiogram, atrial fibrillation management and weight loss as well as sleep apnea management. Medications reviewed and adjusted accordingly: Yes
--- NOTE | 2017-02-16 11:07 | PDOC PROGRESS REPORT ---
Subjective Progress Note for:: 02/16/17 Subjective:: SOB better, patient switched to p.o. Lasix dose. Patient denying any chest pain or shortness of breath. Patient encouraged to ambulate in the hallway. Nuclear stress test results, 2D echocardiogram results were discussed with the patient. CTA results discussed with the patient. Telemetry strips shows atrial fibrillation with controlled ventricular response. Physical Exam Vital Signs: Temp Pulse Resp BP Pulse Ox 98.3 F 57 L 18 141/68 H 95 02/16/17 07:47 02/16/17 07:47 02/16/17 07:47 02/16/17 07:47 02/16/17 07:47 Intake & Output 02/15/17 02/16/17 02/17/17 06:59 06:59 06:59 Intake Total 249 1041 Balance 249 1041 Weight 129.6 kg Exam: GENERAL: well-nourished and in no acute distress. Alert and oriented x3 HEAD: Atraumatic, normocephalic. EYES: Pupils equal round and reactive to light, extraocular movements intact, sclera anicteric, conjunctiva are normal. ENT: TMs normal, nares patent, oropharynx clear without exudates. Moist mucous membranes. No oral ulcerations or bleeding gums noted NECK: supple without lymphadenopathy. Trachea is central. No cervical or axillary lymphadenopathy noted. Carotids are 2+, JVD WNL LUNGS: Respiration seems nonlabored, no significant accessory muscle action noted. Breath sounds clear to auscultation bilaterally and equal noted. No wheezes rales or rhonchi noted. No significant dullness noted on percussion. CHEST: Palpation of the chest wall shows no significant chest wall tenderness. No other significant abnormalities noted. 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 ABDOMEN: Soft, no significant tenderness appreciated, normoactive bowel sounds. No guarding, no rebound. No rigidity noted . No masses appreciated. EXTREMITIES: Pedal pulses are 1-2+, no calf tenderness noted. No clubbing or cyanosis.trace to 1+ pedal edema noted NEUROLOGICAL: Focused neurological exam showed no significant neurologic deficit. Normal speech, no focal weakness appreciated. PSYCH: Normal mood, normal affect. Judgment and insight within normal limits. SKIN: No significant ecchymosis, rash, ulcerations or signs of pruritus noted. MUSCULOSKELETAL EXAM: No significant joint swelling noted. Results Laboratory Results: 02/14/17 18:50 02/14/17 18:50 02/14/17 02/14/17 02/14/17 18:50 18:50 18:50 Creatine Kinase 82 CK-MB (CK-2) 0.51 Troponin I 0.015 NT-Pro-B Natriuret Pep 979 H 02/15/17 02/15/17 02/15/17 00:42 00:42 06:35 Creatine Kinase 80 70 CK-MB (CK-2) 0.65 Troponin I 0.058 NT-Pro-B Natriuret Pep 02/15/17 06:35 Creatine Kinase CK-MB (CK-2) 0.56 Troponin I 0.047 NT-Pro-B Natriuret Pep EKG Comments: Telemetry strips shows atrial fibrillation, no sustained tachycardia or bradycardia arrhythmias noted. Impressions: Chest X-Ray 02/14/17 00:00 IMPRESSION: Borderline cardiomegaly with small pleural effusions. There is no chen CHF. Chest/Abdomen CTA 02/15/17 15:41 IMPRESSION: NORMAL CTA OF THE CHEST. NO PULMONARY EMBOLI. Assessment & Plan - Diagnosis (1) Bradycardia Is this a current diagnosis for this admission?: Yes (2) Atrial fibrillation Qualifiers: Atrial fibrillation type: unspecified Qualified Code(s): I48.91 - Unspecified atrial fibrillation Is this a current diagnosis for this admission?: Yes (3) Hypertension Qualifiers: Hypertension type: essential hypertension Qualified Code(s): I10 - Essential (primary) hypertension Is this a current diagnosis for this admission?: Yes (4) Dyslipidemia Is this a current diagnosis for this admission?: Yes (5) Obesity Qualifiers: Obesity classification: unspecified obesity classification Is this a current diagnosis for this admission?: Yes (6) Sleep apnea syndrome Qualifiers: Sleep apnea type: unspecified type Qualified Code(s): G47.30 - Sleep apnea , unspecified Is this a current diagnosis for this admission?: Yes (7) Diabetes Qualifiers: Diabetes mellitus type: type 2 Diabetes mellitus complication status: without complication Diabetes mellitus intermodal owner operator truck driver insulin use: unspecified intermodal owner operator truck driver insulin use status Qualified Code(s): E11.9 - Type 2 diabetes mellitus without complications Is this a current diagnosis for this admission?: Yes (8) Chest discomfort Is this a current diagnosis for this admission?: Yes (9) Congestive heart failure Qualifiers: Congestive heart failure type: diastolic Congestive heart failure chronicity: acute Qualified Code(s): I50.31 - Acute diastolic (congestive) heart failure Is this a current diagnosis for this admission?: Yes - Notes Notes: Bradycardia: Currently mild and asymptomatic. Sometimes sleep apnea syndrome can increase vagal tone and cause bradycardia. Atrial fibrillation: Most likely chronic but unspecified, possibly chronic. A 2D echo results reviewed. Continue Eliquis therapy. Rate seems reasonably well controlled. Hypertension: BP goal should be 135/85 or less. Currently is stable. Dyslipidemia: LDL goal should be less than 100. If blockages or CAD, then LDL goal should be less than 70. Obesity: Patient has been encouraged in weight loss. Sleep apnea syndrome: Patient describes a diagnosis of this but has not been on CPAP therapy for several years. Discussed benefit of sleep apnea therapy. Diabetes: Currently is stable. 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 Chest discomfort: Resolved. Patient to be managed medically with aggressive risk factor modification and medical management. Should patient has recurrent chest pain, heart catheterization should then be considered.. - Time Time with patient: Greater than 35 minutes - CTA chest results, nuclear stress test results and echocardiogram results were all discussed in detail. Risk factor modification, importance of sleep apnea therapy also discussed. CODE STATUS was discussed, patient remains full code. Surrogate decision-maker unchanged. Multiple medical problems were addressed. More than 50% of the time spent coordinating care, discussing management plans with involved caregivers. Management plans discussed with involved personnels. Medical decision making was of moderate to high complexity, patient's has multiple comorbidities. Medications reviewed and adjusted accordingly: Yes
[2017-02-16] MEDS: INSULIN LISPRO 100 UNIT/ML 3 ML VIAL SUBCUT PRN (13:07)
--- NOTE | 2017-02-16 14:56 | PDOC PROGRESS REPORT ---
Subjective Progress Note for:: 02/16/17 Subjective:: She was seen by the bedside, she has no new complaints today. Physical Exam Vital Signs: Temp Pulse Resp BP Pulse Ox 98.5 F 50 L 16 140/58 H 97 02/16/17 11:28 02/16/17 11:28 02/16/17 11:28 02/16/17 11:28 02/16/17 11:28 Intake & Output 02/15/17 02/16/17 02/17/17 06:59 06:59 06:59 Intake Total 249 1041 Balance 249 1041 Weight 129.6 kg 129.6 kg General appearance: PRESENT: no acute distress, obese Eye exam: PRESENT: PERRLA Respiratory exam: PRESENT: clear to auscultation khushbu Cardiovascular exam: PRESENT: +S1, +S2 Murmur grade: 2 - loudest at A2 and LLSB regions GI/Abdominal exam: PRESENT: soft Neurological exam: PRESENT: alert, CN II-XII grossly intact Results Laboratory Results: 02/14/17 18:50 02/14/17 18:50 02/14/17 02/14/17 02/14/17 18:50 18:50 18:50 Creatine Kinase 82 CK-MB (CK-2) 0.51 Troponin I 0.015 NT-Pro-B Natriuret Pep 979 H 02/15/17 02/15/17 02/15/17 00:42 00:42 06:35 Creatine Kinase 80 70 CK-MB (CK-2) 0.65 Troponin I 0.058 NT-Pro-B Natriuret Pep 02/15/17 06:35 Creatine Kinase CK-MB (CK-2) 0.56 Troponin I 0.047 NT-Pro-B Natriuret Pep Impressions: Chest X-Ray 02/14/17 00:00 IMPRESSION: Borderline cardiomegaly with small pleural effusions. There is no chen CHF. Chest/Abdomen CTA 02/15/17 15:41 IMPRESSION: NORMAL CTA OF THE CHEST. NO PULMONARY EMBOLI. Assessment & Plan - Diagnosis (1) Atrial fibrillation Qualifiers: Atrial fibrillation type: unspecified Qualified Code(s): I48.91 - Unspecified atrial fibrillation Is this a current diagnosis for this admission?: Yes (2) Bradycardia Is this a current diagnosis for this admission?: Yes (3) Chest discomfort Is this a current diagnosis for this admission?: Yes (4) Congestive heart failure Qualifiers: Congestive heart failure type: diastolic Congestive heart failure chronicity: acute Qualified Code(s): I50.31 - Acute diastolic (congestive) heart failure Is this a current diagnosis for this admission?: Yes (5) Diabetes mellitus type 2 in obese Is this a current diagnosis for this admission?: Yes (6) Dyslipidemia Is this a current diagnosis for this admission?: Yes (7) Dyspnea on exertion Is this a current diagnosis for this admission?: Yes - Plan Summary Plan Summary: Continue the present management plan.
[2017-02-16] MEDS: ATORVASTATIN CALCIUM 40 MG TABLET PO SCH (21:20)
[2017-02-17] MEDS: INSULIN DETEMIR 100 UNIT/ML 3 ML PEN SUBCUT SCH ×2 (08:54→21:26)
[2017-02-17] MEDS: LANSOPRAZOLE 30 MG TAB.RAP.DR PO SCH (08:54)
[2017-02-17] MEDS: METFORMIN HCL 500 MG TABLET PO SCH ×2 (08:59→18:58)
[2017-02-17] MEDS: POTASSIUM CHLORIDE 20 MEQ/15 ML UDCUP PO SCH ×2 (11:28→21:25)
[2017-02-17] MEDS: FUROSEMIDE 40 MG TABLET PO SCH (11:29)
[2017-02-17] MEDS: AMLODIPINE BESYLATE 10 MG TABLET PO SCH (11:29)
[2017-02-17] MEDS: VALSARTAN 40 MG TABLET PO SCH (11:30)
[2017-02-17] MEDS: CHOLECALCIFEROL (D3) 1,000 UNIT TABLET PO SCH (11:30)
[2017-02-17] MEDS: APIXABAN 5 MG TABLET PO SCH ×2 (11:31→21:25)
[2017-02-17] MEDS: SITAGLIPTIN PHOSPHATE 50 MG TABLET PO SCH (11:32)
--- NOTE | 2017-02-17 14:50 | PDOC PROGRESS REPORT ---
Subjective Progress Note for:: 02/17/17 Subjective:: There is no new complaints, she was seen by the bedside Physical Exam Vital Signs: Temp Pulse Resp BP Pulse Ox 98.0 F 57 L 16 141/64 H 97 02/17/17 11:53 02/17/17 11:53 02/17/17 11:53 02/17/17 11:53 02/17/17 11:53 Intake & Output 02/16/17 02/17/17 02/18/17 06:59 06:59 06:59 Intake Total 1041 1521 Balance 1041 1521 Weight 128.5 kg General appearance: PRESENT: no acute distress Eye exam: PRESENT: PERRLA Respiratory exam: PRESENT: clear to auscultation khushbu Cardiovascular exam: PRESENT: +S1, +S2 Murmur grade: 2 - loudest at A2 and LLSB regions GI/Abdominal exam: PRESENT: soft Neurological exam: PRESENT: alert, CN II-XII grossly intact Results Laboratory Results: 02/14/17 18:50 02/14/17 18:50 02/14/17 02/14/17 02/14/17 18:50 18:50 18:50 Creatine Kinase 82 CK-MB (CK-2) 0.51 Troponin I 0.015 NT-Pro-B Natriuret Pep 979 H 02/15/17 02/15/17 02/15/17 00:42 00:42 06:35 Creatine Kinase 80 70 CK-MB (CK-2) 0.65 Troponin I 0.058 NT-Pro-B Natriuret Pep 02/15/17 06:35 Creatine Kinase CK-MB (CK-2) 0.56 Troponin I 0.047 NT-Pro-B Natriuret Pep Impressions: Chest X-Ray 02/14/17 00:00 IMPRESSION: Borderline cardiomegaly with small pleural effusions. There is no chen CHF. Chest/Abdomen CTA 02/15/17 15:41 IMPRESSION: NORMAL CTA OF THE CHEST. NO PULMONARY EMBOLI. Assessment & Plan - Diagnosis (1) Atrial fibrillation Qualifiers: Atrial fibrillation type: unspecified Qualified Code(s): I48.91 - Unspecified atrial fibrillation Is this a current diagnosis for this admission?: Yes (2) Bradycardia Is this a current diagnosis for this admission?: Yes (3) Chest discomfort Is this a current diagnosis for this admission?: Yes (4) Congestive heart failure Qualifiers: Congestive heart failure type: diastolic Congestive heart failure chronicity: acute Qualified Code(s): I50.31 - Acute diastolic (congestive) heart failure Is this a current diagnosis for this admission?: Yes (5) Diabetes mellitus type 2 in obese Is this a current diagnosis for this admission?: Yes (6) Dyslipidemia Is this a current diagnosis for this admission?: Yes (7) Dyspnea on exertion Is this a current diagnosis for this admission?: Yes - Plan Summary Plan Summary: Continue treatment
[2017-02-17] MEDS: ATORVASTATIN CALCIUM 40 MG TABLET PO SCH (21:26)
[2017-02-18] MEDS: METFORMIN HCL 500 MG TABLET PO SCH ×2 (09:10→16:44)
[2017-02-18] MEDS: LANSOPRAZOLE 30 MG TAB.RAP.DR PO SCH (09:11)
[2017-02-18] MEDS: SITAGLIPTIN PHOSPHATE 50 MG TABLET PO SCH (09:11)
[2017-02-18] MEDS: CHOLECALCIFEROL (D3) 1,000 UNIT TABLET PO SCH (09:11)
[2017-02-18] MEDS: AMLODIPINE BESYLATE 10 MG TABLET PO SCH (09:12)
[2017-02-18] MEDS: FUROSEMIDE 40 MG TABLET PO SCH (09:13)
[2017-02-18] MEDS: POTASSIUM CHLORIDE 20 MEQ/15 ML UDCUP PO SCH (09:13)
[2017-02-18] MEDS: VALSARTAN 40 MG TABLET PO SCH (09:13)
[2017-02-18] MEDS: INSULIN DETEMIR 100 UNIT/ML 3 ML PEN SUBCUT SCH (09:14)
[2017-02-18] MEDS: APIXABAN 5 MG TABLET PO SCH ×2 (09:20→18:43)
[2017-02-18 17:09] VITALS: BP 154/68
--- NOTE | 2017-02-18 17:56 | PDOC DISCHARGE SUMMARY ---
General - Admit/Disc Date/PCP Admission Date/Primary Care Provider: 02/15/17 17:30 NESSA LELAND Discharge Date: 02/18/17 - Discharge Diagnosis (1) Atrial fibrillation Is this a current diagnosis for this admission?: Yes (2) Dyspnea on exertion Is this a current diagnosis for this admission?: Yes (3) Bradycardia Is this a current diagnosis for this admission?: Yes (4) Chest discomfort Is this a current diagnosis for this admission?: Yes (5) Diabetes mellitus type 2 in obese Is this a current diagnosis for this admission?: Yes (6) HTN (hypertension) Is this a current diagnosis for this admission?: Yes (7) HLD (hyperlipidemia) Is this a current diagnosis for this admission?: Yes (8) Morbid obesity with BMI of 45.0-49.9, adult Is this a current diagnosis for this admission?: Yes (9) Sleep apnea syndrome Is this a current diagnosis for this admission?: Yes - Additional Information Resuscitation Status: Full Code Discharge Diet: Cardiac, Diabetic Discharge Activity: Activity As Tolerated, Balance Activity w/Rest, Weigh Daily Home Medications: Amlodipine Besylate [Norvasc 10 mg Tablet] 10 mg PO DAILY 02/15/17 Atorvastatin Calcium [Lipitor 40 mg Tablet] 40 mg PO QHS 02/15/17 Cholecalciferol (Vitamin D3) [Vitamin D3] 1,000 unit PO DAILY 02/15/17 Cyanocobalamin (Vitamin B-12) [Vitamin B-12 Inj 1000 Mcg/1 ml Vial] 1,000 mcg IM .MONTHLY 02/15/17 Insulin Detemir [Levemir Insulin 100 units/mL] 15 unit SUBCUT QPM 02/15/17 Insulin Detemir [Levemir Insulin 100 units/mL] 30 unit SUBCUT QAM 02/15/17 Melatonin 1 mg PO HSP PRN 02/15/17 Metformin HCl [Glucophage] 1,000 mg PO BIDBS 02/15/17 Apixaban [Eliquis 5 mg Tablet] 5 mg PO Q12 #60 tablet 02/18/17 Furosemide [Lasix 40 mg Tablet] 40 mg PO DAILY #30 tablet 02/18/17 Valsartan [Diovan 40 mg Tablet] 40 mg PO DAILY #30 tablet 02/18/17 History of Present Illness History of Present Illness: JAVID Rogers ALICIA is a 66 year old female known to my practice who presented too the office for routine follow up management of her comorbidities but narrated worsening difficulty with breathing with minimal exertion. Patient reported that ordinary walking or climbing stairs caused her shortness of breath to be more noticeable. Patient reported been on holiday recently with exposure to cigarette smoke and subsequently have been short of breath. She denied any prior history or exposure to cigarette smoking. Shew denied any alcohol or recreational drug usage. She reported episodes of wheezing, postural dizziness, chest tightness, and noted some degree of swelling in her legs. In view of her symptoms constellation she had 12 lead EKG in the office that revealed atrial fibrillation with bradycardia. Also, her impedence cardiograph revealed significantly elevated blood pressure, impaired cardiac indices and elevated peripheral vascular resistance. She was subsequently advised hospitalization for further evaluation and management. Hospital Course Hospital Course: Patient responded to IV diuretic therapy. Her pharmacologic stress test, echocardiography and CTA chest were found to be within normal limits. She reported improvement in her breathing and have been ambulating on the medical floor without any significant SOB. She will remain on current medication regimen. She will be discharge home today and follow upon the office as instructed upon discharge. Physical Exam Vital Signs: Temp Pulse Resp BP Pulse Ox 98.2 F 59 L 18 154/68 H 99 02/18/17 15:59 02/18/17 15:59 02/18/17 15:59 02/18/17 15:59 02/18/17 15:59 Intake & Output 02/17/17 02/18/17 02/19/17 06:59 06:59 06:59 Intake Total 1521 1144 Balance 1521 1144 Weight 128.5 kg 128.4 kg Physical Exam: General appearance: PRESENT: no acute distress, morbidly obese Head exam: PRESENT: atraumatic, normocephalic Eye exam: PRESENT: conjunctiva pink, EOMI, PERRLA. ABSENT: scleral icterus Respiratory exam: PRESENT: clear to auscultation khushbu Cardiovascular exam: PRESENT: irregular rhythm, +S1, +S2, systolic murmur Murmur grade: 2 - loudest at A2 and LLSB regions GI/Abdominal exam: PRESENT: normal bowel sounds, soft. ABSENT: distended, guarding, mass, organomegaly, rebound, tenderness Extremities exam: PRESENT: pedal edema - Resolved bilateral pitting edema. Musculoskeletal exam: PRESENT: deformity - related to multiple joints involvement with arthritis Neurological exam: PRESENT: alert, awake, oriented to person, oriented to place , oriented to time, oriented to situation, CN II-XII grossly intact. ABSENT: motor sensory deficit Psychiatric exam: PRESENT: appropriate affect, normal mood. ABSENT: homicidal ideation, suicidal ideation Skin exam: PRESENT: dry, intact, warm. ABSENT: cyanosis, rash Murmur grade: 2 - loudest at A2 and LLSB regions Results Laboratory Results: 02/14/17 18:50 02/14/17 18:50 02/14/17 02/14/17 02/14/17 18:50 18:50 18:50 Creatine Kinase 82 CK-MB (CK-2) 0.51 Troponin I 0.015 NT-Pro-B Natriuret Pep 979 H 02/15/17 02/15/17 02/15/17 00:42 00:42 06:35 Creatine Kinase 80 70 CK-MB (CK-2) 0.65 Troponin I 0.058 NT-Pro-B Natriuret Pep 02/15/17 06:35 Creatine Kinase CK-MB (CK-2) 0.56 Troponin I 0.047 NT-Pro-B Natriuret Pep Impressions: Chest X-Ray 02/14/17 00:00 IMPRESSION: Borderline cardiomegaly with small pleural effusions. There is no chen CHF. Chest/Abdomen CTA 02/15/17 15:41 IMPRESSION: NORMAL CTA OF THE CHEST. NO PULMONARY EMBOLI. Qualifiers PATEINT BEING DISCHARGED WITH ANY OF THE FOLLOWING DIAGNOSIS?: No Plan Discharge Plan: Discharge homne today with follow up appointment in the office as instructed upon discharge. Time Spent: Greater than 30 Minutes - I spent significant amount of time at bedside discussing post discharge care with patient and daughter. She was instructed on side effects and bleeding monitoring while on Eliquis therapy for antiucoagulation due to her Atrial Fibrillation. More than 50% of my time was spent in care coordination and post discharge plan.
--- NOTE | 2017-02-22 09:55 | XCELERA REPORT ---
[address] [address] Transthoracic Echocardiogram Report Name: JAVID VARGAS Age: 66 yrs Gender: Female : 1950 Patient Status: Inpatient Patient Location: [address] [place] [address] Study Date: 02/15/2017 09:45 AM Height: 65 in Weight: 284 lb BSA: 2.3 m2 Procedure: A complete two-dimensional transthoracic echocardiogram was performed (2D, M-mode, spectral and color flow Doppler). The study was technically difficult with many images being suboptimal in quality. Reason For Study: Afib sob Ordering Physician: NESSA HA Performed By: Socorro Henderson Interpretation Summary The study was technically difficult with many images being suboptimal in quality. The left ventricular ejection fraction is normal. There is mild concentric left ventricular hypertrophy. The left ventricle is grossly normal size. Not all wall segments were well visualized. The right ventricular systolic function is normal. The right atrium is normal in size The left atrium is mildly dilated. There is a trace amount of mitral regurgitation There is no mitral valve stenosis. No aortic regurgitation is present. There is no aortic valve stenosis There is a trace or physiologic amount of tricuspid regurgitation Tricuspid regurgitation jet envelope not well defined to measure RV systolic pressure accurately. The aortic root is not well visualized. The inferior vena cava appeared normal and decreased > 50% with respiration (RAP 5-10 mmHg) There is no pericardial effusion. MMode/2D Measurements & Calculations RVDd: 2.4 cm LVIDd: 5.1 cmFS: 40.5 % Ao root diam: 2.7 cm IVSd: 1.0 cm LVIDs: 3.0 cmEDV(Teich): 124.3 ml LVPWd: 1.0 cmESV(Teich): 36.1 ml Ao root area: 5.8 cm2 EF(Teich): 70.9 % LA dimension: 3.8 cm LVOT diam: 2.0 cm LVOT area: 3.2 cm2 Doppler Measurements & Calculations MV E max alex: MV P1/2t max alex: Ao V2 max: LV V1 max P.8 cm/sec 95.8 cm/sec 177.6 cm/sec 5.5 mmHg MV A max laex: MV P1/2t: 55.0 msec Ao max PG: LV V1 max: 36.0 cm/sec MVA(P1/2t): 4.0 cm2 12.6 mmHg 116.9 cm/sec MV E/A: 2.6 MV dec slope: KEATON(V,D): 2.1 cm2 509.5 cm/sec2 PA V2 max: 122.4 cm/sec PA max P.0 mmHg Left Ventricle The left ventricle is grossly normal size. There is mild concentric left ventricular hypertrophy. The left ventricular ejection fraction is normal. LV diastolic function could not be adequately assessed due to atrial fibrilation. Not all wall segments were well visualized. Right Ventricle The right ventricle is grossly normal size. There is normal right ventricular wall thickness. The right ventricular systolic function is normal. Atria The right atrium is normal in size. The left atrium is mildly dilated. Interarterial septum not well visualized and not well dopplered. Cannot comment on ASD/PFO presence. Mitral Valve The mitral valve is grossly normal. There is no mitral valve stenosis. There is a trace amount of mitral regurgitation. Aortic Valve The aortic valve is not well visualized secondary to technical limitations. There is no aortic valve stenosis. No aortic regurgitation is present. Tricuspid Valve The tricuspid valve is not well visualized secondary to technical limitations. There is no tricuspid stenosis. There is a trace or physiologic amount of tricuspid regurgitation. Tricuspid regurgitation jet envelope not well defined to measure RV systolic pressure accurately. Pulmonic Valve The pulmonic valve is not well visualized. Great Vessels The aortic root is not well visualized. The inferior vena cava appeared normal and decreased > 50% with respiration (RAP 5-10 mmHg). Effusions There is no pericardial effusion. : NESSA HA > Jae Valverde
[2017-03-11] MEDS ORDERED: CYANOCOBALAMIN (VITAMIN B-12) INJ 1000 MCG/1 ML VIAL IM SCH (10:00)
== END 2017-02-18 18:50 | disposition home or self-care (01) | DRG 308 ==
LOC: 3N 16:29 → UNDOADMOB 16:29 → 3N 02-15 17:30 → UNDOADMOB 02-15 17:30 → OBSVTOIN 02-15 17:30
PROVIDERS: ADMIT Internal Medicine Geriatric Medicine; ATTEND Internal Medicine Geriatric Medicine
DX: I48.91 Unspecified atrial fibrillation (principal); I50.31 Acute diastolic (congestive) heart failure; Z68.42 Body mass index [BMI] 45.0-49.9, adult; R00.1 Bradycardia, unspecified; E78.5 Hyperlipidemia, unspecified; I10 Essential (primary) hypertension; E11.9 Type 2 diabetes mellitus without complications; E66.01 Morbid (severe) obesity due to excess calories; G47.30 Sleep apnea, unspecified; Z79.82 Long term (current) use of aspirin; Z79.4 Long term (current) use of insulin; Z79.84 Long term (current) use of oral hypoglycemic drugs; Z79.899 Other long term (current) drug therapy
CPT/HCPCS: 36415; 71020; 71275; 78452; 80053; 80061; 82550; 82553; 82962; 83880; 84443; 84484; 85025; 85610; 93005; 93010; 93017; 93306; A9500; G0378; G0379; J0280; J1815; J1940; J2785; Q9969

== ENCOUNTER 2017-10-26 02:58 | Observation (INO) | payer MEDICARE, MEDICAID ==
--- NOTE | 2017-10-26 03:33 | ER Document Report ---
ED General - General Chief Complaint: Numbness of Face Stated Complaint: MOUTH NUMBNESS TRAVEL OUTSIDE OF THE [place] IN LAST 30 DAYS: No - HPI Notes: Patient is a 66-year-old female with a history of type 1 diabetes, hypertension , hypercholesterolemia, A-fib who presents to the ED complaining of left-sided facial tingling, left arm tingling, and left leg tingling that began on the left side of her face yesterday morning before her granddaughter went to school. Patient states that throughout the day symptoms began being experienced in her left arm and left leg and she continued to have the symptoms when she went to bed at 9 PM last night. Patient states that she still has those symptoms present; although, improved, so she came to the emergency department for evaluation. Patient states that her symptoms did start out with a left-sided headache that has since resolved otherwise. She is on eliquis for a-fib. She is eating and drinking without any difficulties. She is urinating normally and having normal bowel movements. There is no injury or head trauma. She denies any drug allergies. Denies any smoking or IV drug use. No prev h/ o [place], CVA, TIA. Denies any current headache, fever, head injury, neck pain, changes in vision/speech/mentation/hearing, URI, sore throat, chest pain, palpitations, syncope, cough, shortness of breath, wheeze, dyspnea, abdominal pain, nausea/vomiting/diarrhea, urinary retention, dysuria, hematuria, loss of control of bowel or bladder, saddle anesthesia, muscle paralysis/weakness, or rash. - Related Data Allergies/Adverse Reactions: No Known Allergies Allergy (Verified 10/26/17 04:59) Past Medical History - Social History Smoking Status: Never Smoker Family History: Hypertension - Past Medical History Cardiac Medical History: Reports: Hx Hypercholesterolemia, Hx Hypertension Denies: Hx Heart Attack Pulmonary Medical History: Denies: Hx Asthma, Hx Bronchitis, Hx COPD, Hx Pneumonia Neurological Medical History: Denies: Hx Cerebrovascular Accident, Hx Seizures Endocrine Medical History: Reports: Hx Diabetes Mellitus Type 2 Renal/ Medical History: Denies: Hx Peritoneal Dialysis Musculoskeltal Medical History: Denies Hx Arthritis Psychiatric Medical History: Reports: Hx Anxiety Denies: Hx Depression Past Surgical History: Reports: Hx Hysterectomy - Immunizations Hx Diphtheria, Pertussis, Tetanus Vaccination: Yes Review of Systems - Review of Systems -: Yes All other systems reviewed and negative Physical Exam - Vital signs Vitals: Temp Pulse Resp BP Pulse Ox 97.9 F 55 L 16 147/64 H 98 10/26/17 03:06 10/26/17 03:06 10/26/17 03:06 10/26/17 03:06 10/26/17 03:06 - Notes Notes: PHYSICAL EXAMINATION: accompanied by female nurse GENERAL: Well-appearing, well-nourished and in no acute distress. A&Ox4. Answers questions appropriately. HEAD: Atraumatic, normocephalic. Non-tender. EYES: Pupils equal round and reactive to light, extraocular movements intact, sclera anicteric, conjunctiva are normal. No nystagmus. vis walter intact. ENT: Nares patent and without discharge. oropharynx clear without exudates. No tonsilar hypertrophy or erythema. Moist mucous membranes. NECK: Normal range of motion, supple without lymphadenopathy. No rigidity. No midline tenderness. Spurling negative. LUNGS: Breath sounds clear to auscultation bilaterally and equal. No wheezes rales or rhonchi. HEART: IRR without murmurs, rubs, gallops. ABDOMEN: Soft, nontender, nondistended abdomen. No guarding, no rebound. No masses appreciated. Normal bowel sounds present. No CVA tenderness bilaterally. Musculoskeletal: Ext b/l: FROM to passive/active. Strength 5+/5. No deficits noted. No bony tenderness of extremities. Back: FROM to passive/active. Strength 5+/5. No vertebral point tenderness, stepoffs, or deformities. Extremities: No cyanosis, clubbing, or edema b/l. Peripheral pulses 2+. Capillary refill less than 2 seconds. NEUROLOGICAL: NIH 1 (pt did have some dec sensation only to her left foot vs right). GCS 15. Cranial nerves grossly intact. Normal speech, normal gait. Normal sensory, motor exams. Reflexes 2+ b/l. GIN's negative. Pronator drift negative. Heel/snow, finger/nose wnl. Rhomberg negative. PSYCH: Normal mood, normal affect. SKIN: Warm, Dry, normal turgor, no rashes or lesions noted. Course - Re-evaluation Re-evalutation: 10/26/17 04:23 I did review this case with Dr. Card who also eval'd the patient. Patient is an afebrile, well-hydrated, 66-year-old female who presents to the ED with tingling/numbness unspecified but continued to the left side of the body. Vitals are acceptable. PE is otherwise unremarkable for any focal neurological deficits. She has no significant tachycardia, tachypnea, or hypoxia. NIH 1, GCS 15, cranial nerves grossly intact. Patient only scored a 1 because of one spot on her foot that had a decreased sensation versus the right side of the dorsal foot. Otherwise, patient was able to drive here without any difficulties. Patient symptoms have been ongoing for about 20 hours. Symptoms have been reported as improved. CBC, CMP, EKGx2 unremarkable. Trop still pending, but low suspicion for ACS at this time w/o cardiac/resp symptoms. Plan will be to admit for possible TIA. Pt has many risk factors and we do not feel comfortable sending her home at this time. Pt in agreement with plan. I will call to speak with Dr. Edward who is covering for Dr. Matias. 10/26/17 04:[address] Edward. He would like a CTA head and them admit to IMCU. 10/26/17 05:46 Trop negative Pt has no new concerns or complaints. Vitals acceptable. CTA unremarkable, but also limited. Admit to IMCU. - Vital Signs Vital signs: Temp Pulse Resp BP Pulse Ox 97.9 F 56 L 14 130/67 H 96 10/26/17 03:06 10/26/17 03:20 10/26/17 04:01 10/26/17 04:01 10/26/17 04:01 - Laboratory Result Diagrams: 10/26/17 03:54 10/26/17 03:54 Laboratory results interpreted by me: 10/26/17 10/26/17 03:54 03:54 MCV 79 L RDW 18.5 H Potassium 3.4 L BUN 27 H Creatinine 1.52 H Est GFR ( Amer) 42 L Est GFR (Non-Af Amer) 34 L Direct Bilirubin 0.5 H Discharge - Discharge Clinical Impression: TIA (transient ischemic attack) Qualifiers: Transient cerebral ischemia type: unspecified Qualified Code(s): G45.9 - Transient cerebral ischemic attack, unspecified Condition: Stable Disposition: ADMITTED INPATIENT Admitting Provider: [facility] Unit Admitted: [facility]
[2017-10-26 04:05] LABS: ABSOLUTE BASOPHILS # (AUTO) 0.1 10^3/uL (0.0-0.2); ABSOLUTE EOSINOPHILS # (AUTO) 0.1 10^3/uL (0.0-0.6); ABSOLUTE LYMPHOCYTES (AUTO) 2.1 10^3/uL (0.5-4.7); ABSOLUTE MONOCYTES (AUTO) 0.8 10^3/uL (0.1-1.4); ABSOLUTE NEUT (AUTO) 6.6 10^3/uL (1.7-8.2); BASOPHILS % (AUTO) 0.7 % (0-2); EOSINOPHILS % (AUTO) 0.8 % (0-6); HEMATOCRIT 38.2 % (36.0-47.0); HEMOGLOBIN 13.2 g/dL (12.0-15.5); LYMPHOCYTES % (AUTO) 21.9 % (13-45); MEAN CORPUSCULAR HEMOGLOBIN 27.3 pg (27.0-33.4); MEAN CORPUSCULAR HGB CONC 34.5 g/dL (32.0-36.0); MEAN CORPUSCULAR VOLUME 79 fl (80-97); MONOCYTES % (AUTO) 8.5 % (3-13); PLATELET COUNT 326 10^3/uL (150-450); RED BLOOD COUNT 4.82 10^6/uL (3.72-5.28); RED CELL DISTRIBUTION WIDTH 18.5 % (11.5-14.0); SEGMENTED NEUTROPHILS % (AUTO) 68.1 % (42-78); TOTAL CELLS COUNTED % (AUTO) 100 %; WHITE BLOOD COUNT 9.8 10^3/uL (4.0-10.5)
--- NOTE | 2017-10-26 04:14 | RADIOLOGY REPORT (SQ) ---
EXAM DESCRIPTION: CT of the head without contrast CLINICAL HISTORY: tingling/numbness left side of face/arm/leg COMPARISON: None available TECHNIQUE: Axial CT of the head obtained from the skull apex to the skull base without contrast. FINDINGS: No acute intracranial hemorrhage identified. No mass, mass effect, shift of the midline, abnormal extra-axial fluid collection or CT evidence of acute ischemic change identified. The ventricular system is unremarkable. No acute abnormalities of the supratentorial white matter, basal ganglia, cerebellum, or brainstem. The visualized paranasal sinuses and the mastoids are clear. Questionable permeative lesion involving the calvarium measuring 1.0 cm on the right. Visualized orbits and globes are unremarkable. DLP: 990.56 mGy-cm IMPRESSION: 1. No acute intracranial abnormality identified. 2. Questionable permeative lesion involving the right calvarium measuring 1.0 cm. Correlation for history of myeloma or other etiology that could produce permeative calvarial lesions recommended. This exam was performed according to our departmental dose-optimization program, which includes automated exposure control, adjustment of the mA and/or kV according to patient size and/or use of iterative reconstruction technique.
[2017-10-26 04:19] LABS: ALANINE AMINOTRANSFERASE 10 U/L (9-52); ALBUMIN 3.9 g/dL (3.5-5.0); ALKALINE PHOSPHATASE 103 U/L (38-126); ANION GAP 12 (5-19); ASPARTATE AMINO TRANSFERASE 30 U/L (14-36); BILIRUBIN,DIRECT 0.5 mg/dL (0.0-0.4); BILIRUBIN,TOTAL 0.7 mg/dL (0.2-1.3); BLOOD UREA NITROGEN 27 mg/dL (7-20); CALCIUM 9.4 mg/dL (8.4-10.2); CARBON DIOXIDE 30 mmol/L (22-30); CHLORIDE 103 mmol/L (98-107); GLUCOSE 109 mg/dL (75-110); POTASSIUM 3.4 mmol/L (3.6-5.0); SODIUM 144.9 mmol/L (137-145); TOTAL PROTEIN 7.6 g/dL (6.3-8.2)
--- NOTE | 2017-10-26 05:45 | RADIOLOGY REPORT (SQ) ---
EXAM DESCRIPTION: CTA of the head with contrast CLINICAL HISTORY: Numbness/tingling left side COMPARISON: CT head performed same day TECHNIQUE: Axial CT images of the head and neck obtained from the thoracic arch to the head following the uncomplicated intravenous administration of 70 mL Isovue-370. The contrast bolus is completely missed. Only mild late arterial phase contrast images available. Evaluation of both intracranial and neck vasculature is suboptimal. FINDINGS: CTA HEAD: The great vessels have normal anatomic configuration. The carotid arteries appear patent throughout their length. The intracranial carotid arteries appear patent and bifurcate into patent A1 and M1 segments of the intracranial cerebral arteries. Evaluation for stenosis and aneurysm is suboptimal due to contrast bolus timing. Mild intracranial atherosclerosis. The cervical vertebral arteries are poorly visualized due to late contrast bolus timing and adjacent artifact of the bones however they appear patent throughout their course. Intracranial vertebral arteries combined to form a patent basilar artery. The basilar artery bifurcates into patent P1 segments of the posterior cerebral arteries. No definite occlusion identified. Suboptimal evaluation for stenosis or aneurysm due to contrast bolus timing. Multiple subcentimeter hypodensities identified in the thyroid. These are not clinically significant. No follow-up imaging recommended. No other abnormalities identified in the neck soft tissues. Redemonstrated permeative right calvarial lesion. DLP: 1002.10 mGy-cm IMPRESSION: 1. Suboptimal evaluation due to contrast bolus timing and large dzvrh-ti-[id number] technique. 2. No gross abnormalities of the intracranial vasculature identified. Suboptimal evaluation for stenosis or aneurysm. If there is high clinical concern for intracranial vascular abnormality repeat imaging or MRA could provide additional characterization This exam was performed according to our departmental dose-optimization program, which includes automated exposure control, adjustment of the mA and/or kV according to patient size and/or use of iterative reconstruction technique.
[2017-10-26 06:02] LABS: APPEARANCE,URINE SLIGHTLY-CLOUDY; BILIRUBIN,URINE NEGATIVE (NEGATIVE); COLOR,URINE YELLOW; GLUCOSE, URINE NEGATIVE (NEGATIVE); KETONES,URINE NEGATIVE (NEGATIVE); LEUKOCYTE ESTERASE,URINE SMALL (NEGATIVE); NITRITE,URINE NEGATIVE (NEGATIVE); PROTEIN,URINE 30 mg/dL (NEGATIVE); URINE SPECIFIC GRAVITY 1.015
[2017-10-26] MEDS ORDERED: ASPIRIN 325 MG TABLET PO ONE (08:00)
[2017-10-26] MEDS ORDERED: GLUCAGON,HUMAN RECOMB 1 MG INJ IM PRN (08:16)
[2017-10-26] MEDS ORDERED: DEXTROSE 50%-WATER SYRINGE 12.5 GM/25 ML DOSE IV PRN (08:16)
[2017-10-26] MEDS ORDERED: DEXTROSE 40% GEL 15 GM TUBE X 2 PO PRN (08:16)
[2017-10-26] MEDS ORDERED: DEXTROSE 40% GEL 15 GM TUBE PO PRN (08:16)
[2017-10-26] MEDS ORDERED: INSULIN LISPRO 100 UNIT/ML 3 ML VIAL SUBCUT PRN (08:16)
[2017-10-26] MEDS ORDERED: DEXTROSE 50%-WATER SYRINGE 25 GM/50 ML DOSE IV PRN (08:16)
[2017-10-26] MEDS ORDERED: NORMAL SALINE 1000 ML 1,000 ML IV PRN (09:24)
--- NOTE | 2017-10-26 09:58 | PDOC H&P ---
History of Present Illness Admission Date/PCP: 10/26/17 05:50 Patient complains of: Left-sided weakness and tingling History of Present Illness: JAVID VARGAS is a 66 year old female This 66-year-old female with a significant history of the type 2 diabetes on insulin dependent history of the hypertension's hyperlipidemia and a history of the chronic atrial fibrillation's and currently on the Xarelto started the left- sided headache and tingling in the face last and more worse on a Saturday yesterday patient's noticed on the left side of the leg is more heavy in patients noticed more tingling and numbness in the left upper extremity and lower extremity and patient have some problem on eye on the left side and patients came to the emergency departments but patient have a CT scan of the head was done initially was negative for any acute stroke except some lesion and CTA done which no acute finding of any stenosis When I saw the patient on the floor pretty much all symptoms resolved after patients came to the ER still have a feeling little heavy on the left lower extremity but denied any chest pain denied any shortness of the breath denied any eye problem Patients walk without any problems Patient expresses she is basically back to the normal Patients have a some questionable lesion in the brain which patients denied any issue in the past Patient's at this point will order the MRI and MRA to further evaluate and patient admitting for possible TIA Past Medical History Cardiac Medical History: Reports: Atrial Fibrillation, Hyperlipidema, Hypertension Denies: Myocardial Infarction Pulmonary Medical History: Denies: Asthma, Bronchitis, Chronic Obstructive Pulmonary Disease (COPD), Pneumonia Neurological Medical History: Denies: Seizures Endocrine Medical History: Reports: Diabetes Mellitus Type 2 Musculoskeltal Medical History: Denies: Arthritis Psychiatric Medical History: Denies: Depression Hematology: Reports: Anemia Past Surgical History Past Surgical History: Reports: Hysterectomy Social History Smoking Status: Never Smoker Frequency of Alcohol Use: None Hx Recreational Drug Use: No Drugs: None Hx Prescription Drug Abuse: No - Advance Directive Resuscitation Status: Full Code Family History Family History: Reviewed & Not Pertinent, Hypertension Parental Family History Reviewed: Yes Children Family History Reviewed: Yes Sibling(s) Family History Reviewed.: Yes Medication/Allergy Home Medications: Atorvastatin Calcium [Lipitor 40 mg Tablet] 40 mg PO QHS 02/15/17 Cholecalciferol (Vitamin D3) [Vitamin D3] 1,000 unit PO DAILY 02/15/17 Cyanocobalamin (Vitamin B-12) [Vitamin B-12 Inj 1000 Mcg/1 ml Vial] 1,000 mcg IM .MONTHLY MDD already had may's dose 02/15/17 Metformin HCl [Glucophage] 1,000 mg PO BIDBS 02/15/17 Furosemide [Lasix 40 mg Tablet] 40 mg PO DAILY #30 tablet 02/18/17 Potassium Chloride [K-Tab ER] 20 meq PO DAILY #30 tablet.er 02/18/17 Amlodipine/Valsartan/Hcthiazid [Witwj-Fespq-Ircz 5-160-25 mg] 1 each PO DAILY Insulin Glargine,Hum.rec.anlog [Toumelo Solostar] 45 unit SQ DAILY 10/26/17 Rivaroxaban [Xarelto 10 mg Tablet] 20 mg PO DAILY 10/26/17 Allergies/Adverse Reactions: No Known Allergies Allergy (Verified 10/26/17 04:59) Review of Systems Constitutional: ABSENT: chills, fever(s), headache(s), weight gain, weight loss Eyes: ABSENT: visual disturbances Ears: ABSENT: hearing changes Cardiovascular: ABSENT: chest pain, dyspnea on exertion, edema, orthropnea, palpitations Respiratory: ABSENT: cough, hemoptysis Gastrointestinal: ABSENT: abdominal pain, constipation, diarrhea, hematemesis, hematochezia, nausea, vomiting Genitourinary: ABSENT: dysuria, hematuria Musculoskeletal: ABSENT: joint swelling Integumentary: ABSENT: rash, wounds Neurological: PRESENT: as per HPI. ABSENT: abnormal gait, abnormal speech, confusion, dizziness, focal weakness, syncope Psychiatric: ABSENT: anxiety, depression, homidical ideation, suicidal ideation Endocrine: ABSENT: cold intolerance, heat intolerance, menstrual abnormalities, polydipsia, polyuria Hematologic/Lymphatic: ABSENT: easy bleeding, easy bruising, lymphadenopathy Physical Exam Vital Signs: Temp Pulse Resp BP Pulse Ox 97.6 F 50 L 16 136/68 H 100 10/26/17 07:39 10/26/17 07:39 10/26/17 07:39 10/26/17 07:39 10/26/17 07:39 Intake & Output 10/25/17 10/26/17 10/27/17 06:59 06:59 06:59 Weight 120 kg General appearance: PRESENT: no acute distress, well-developed, well-nourished Head exam: PRESENT: atraumatic, normocephalic Eye exam: PRESENT: conjunctiva pink, EOMI, PERRLA. ABSENT: scleral icterus Ear exam: PRESENT: normal external ear exam Mouth exam: PRESENT: moist, tongue midline Neck exam: PRESENT: full ROM. ABSENT: carotid bruit, JVD, lymphadenopathy, thyromegaly Respiratory exam: PRESENT: clear to auscultation khushbu Cardiovascular exam: PRESENT: RRR. ABSENT: diastolic murmur, rubs, systolic murmur Pulses: PRESENT: normal dorsalis pedis pul, +2 pedal pulses bilateral Vascular exam: PRESENT: normal capillary refill GI/Abdominal exam: PRESENT: normal bowel sounds, soft. ABSENT: distended, guarding, mass, organolmegaly, rebound, tenderness Rectal exam: PRESENT: deferred Extremities exam: ABSENT: pedal edema Musculoskeletal exam: PRESENT: ambulatory Neurological exam: PRESENT: alert, awake, oriented to person, oriented to place , oriented to time, oriented to situation, reflexes normal, CN II-XII grossly intact. ABSENT: motor sensory deficit Psychiatric exam: PRESENT: appropriate affect, normal mood. ABSENT: homicidal ideation, suicidal ideation Skin exam: PRESENT: dry, intact, warm. ABSENT: cyanosis, rash Results Impressions: Head CT 10/26/17 03:24 IMPRESSION: 1. No acute intracranial abnormality identified. 2. Questionable permeative lesion involving the right calvarium measuring 1.0 cm. Correlation for history of myeloma or other etiology that could produce permeative calvarial lesions recommended. This exam was performed according to our departmental dose-optimization program, which includes automated exposure control, adjustment of the mA and/or kV according to patient size and/or use of iterative reconstruction technique. Head CTA 10/26/17 04:34 IMPRESSION: 1. Suboptimal evaluation due to contrast bolus timing and large ecgby-wv-nlmd technique. 2. No gross abnormalities of the intracranial vasculature identified. Suboptimal evaluation for stenosis or aneurysm. If there is high clinical concern for intracranial vascular abnormality repeat imaging or MRA could provide additional characterization This exam was performed according to our departmental dose-optimization program, which includes automated exposure control, adjustment of the mA and/or kV according to patient size and/or use of iterative reconstruction technique. Assessment & Plan - Diagnosis (1) TIA (transient ischemic attack) Qualifiers: Transient cerebral ischemia type: unspecified Qualified Code(s): G45.9 - Transient cerebral ischemic attack, unspecified Is this a current diagnosis for this admission?: Yes Plan: Patient is already on Xarelto at the aspirin 81 mg Get the MRI and MRA of the head We will also get the carotid Doppler Continues the patient on the stroke protocol Keep a blood pressure is 130-150 range (2) Atrial fibrillation Qualifiers: Atrial fibrillation type: chronic Qualified Code(s): I48.2 - Chronic atrial fibrillation Is this a current diagnosis for this admission?: Yes Plan: Currently on the Xarelto (3) Bradycardia Is this a current diagnosis for this admission?: Yes Plan: History of the chronic A. fib's and the patient's heart rate going up to 40 range and consult the cardiology for further evaluations (4) Diabetes mellitus type 2 in obese Is this a current diagnosis for this admission?: Yes Plan: Continues a sliding scale (5) Dyslipidemia Is this a current diagnosis for this admission?: Yes Plan: Continues to Lipitor 40 mg p.o. 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
[2017-10-26] MEDS ORDERED: VALSARTAN PO SCH (10:00)
[2017-10-26] MEDS ORDERED: [UNRECOGNIZED DRUG - OTHER] PO SCH (10:00)
[2017-10-26] MEDS ORDERED: POTASSIUM CHLORIDE 10 MEQ TABLET.SA PO ONE (10:00)
[2017-10-26] MEDS ORDERED: HCTHIAZID PO SCH (10:00)
[2017-10-26] MEDS ORDERED: (PENDING PHARMACY ID) (Cholecalciferol (Vitamin D3) [Vitamin D3] 1,000 UNIT) PO SCH (10:00)
[2017-10-26] MEDS ORDERED: AMLODIPINE PO SCH (10:00)
[2017-10-26] MEDS ORDERED: (PENDING PHARMACY ID) (Potassium Chloride [K-Tab Er] 20 MEQ) PO SCH (10:00)
[2017-10-26] MEDS ORDERED: INSULIN GLARGINE HUM REC ANLOG 45 UNIT SQ SCH (10:00)
[2017-10-26] MEDS: ASPIRIN 81 MG TABLET, ENT COATED PO SCH (10:33)
[2017-10-26] MEDS: FUROSEMIDE 40 MG TABLET PO SCH (10:37)
[2017-10-26] MEDS: CHOLECALCIFEROL (D3) 1,000 UNIT TABLET PO SCH (10:37)
[2017-10-26] MEDS: POTASSIUM CHLORIDE 10 MEQ TABLET.SA PO SCH (10:39)
[2017-10-26] MEDS: RIVAROXABAN 10 MG TABLET PO SCH (10:40)
--- NOTE | 2017-10-26 11:32 | RADIOLOGY REPORT (SQ) ---
EXAM DESCRIPTION: MRI HEAD WITHOUT COMPLETED DATE/TIME: 10/26/2017 11:23 am REASON FOR STUDY: Rule out stroke N18.2 CHRONIC KIDNEY DISEASE, STAGE 2 (MILD) COMPARISON: CT dated 10/26/2017. TECHNIQUE: Multiplanar imaging includes non-contrasted T1, T2, FLAIR, and diffusion with ADC map seq uences. Images stored on PACS. LIMITATIONS: None. FINDINGS: ANATOMY: No anomalies. Normal vascular flow voids. Incidental empty sella. CSF SPACES: Normal in size and contour. No hemorrhage. CEREBRUM: Sulci and gyri normal in size and contour. Normal white matter signal on FLAIR imaging. No evidence of hemorrhage, mass, or extraaxial fluid collection. POSTERIOR FOSSA: No signal alteration. No hemorrhage. No edema, masses or mass effect. Internal hollie tory canals, cerebello-pontine angles, mastoids normal. DIFFUSION IMAGING: Negative for acute or sub-acute infarction. ORBITS: No masses. Globes normal. PARANASAL SINUSES: No fluid levels. Mucosa normal. OTHER: No other significant finding. IMPRESSION: NORMAL MRI OF THE BRAIN WITHOUT INTRAVENOUS GADOLINIUM CONTRAST. EVIDENCE OF ACUTE STROKE: NO. TECHNICAL DOCUMENTATION: JOB ID: [id number] [employer]- All Rights Reserved Reading location - IP/workstation name: [email or web address]
--- NOTE | 2017-10-26 11:34 | RADIOLOGY REPORT (SQ) ---
EXAM DESCRIPTION: MRA HEAD WITHOUT COMPLETED DATE/TIME: 10/26/2017 11:23 am REASON FOR STUDY: rule out stroke N18.2 CHRONIC KIDNEY DISEASE, STAGE 2 (MILD) COMPARISON: None. TECHNIQUE: Axial 3-D qqvq-ag-qqlaru acquisition imaging performed through the brain in the area of t he pilot station of [place]. Images reformatted using 3-D MIPS. LIMITATIONS: None. FINDINGS: SOURCE IMAGES: No unexpected findings on source images. No large masses. 3-D MIP: No aneurysm. No occlusions. No significant stenosis. OTHER: No other significant finding. IMPRESSION: NORMAL MRA OF THE [place] OF [place]. TECHNICAL DOCUMENTATION: JOB ID: [id number] [employer]- All Rights Reserved Reading location - IP/workstation name: [email or web address]
[2017-10-26 13:23] LABS: FREE T4 (FREE THYROXINE) 1.32 ng/dL (0.78-2.19)
[2017-10-26 13:35] LABS: FREE T3 4.13 pg/mL (2.77-5.27)
[2017-10-26 13:37] LABS: THYROID STIMULATING HORMONE 0.94 uIU/mL (0.47-4.68)
[2017-10-26] MEDS ORDERED: METFORMIN HCL 500 MG TABLET PO SCH (17:00)
--- NOTE | 2017-10-26 17:37 | RADIOLOGY REPORT (SQ) ---
EXAM DESCRIPTION: CAROTID DOPPLER COMPLETED DATE/TIME: 10/26/2017 5:13 pm REASON FOR STUDY: rule out stroke N18.2 CHRONIC KIDNEY DISEASE, STAGE 2 (MILD) R00.1 BRADYCARDIA, UNSPECIFIED COMPARISON: None. TECHNIQUE: Grayscale ultrasound, Doppler velocity and spectra, and color Doppler images acquired of the extra-cranial carotid and vertebral arteries. Images stored on PACS. LIMITATIONS: None. FINDINGS: RIGHT CAROTID CCA Velocities: Within normal limits. ICA Velocities Peak systolic 87 m/s. End diastolic 28 m/s. Proximal ICA/CCA peak systolic ratio 0.92. Spectra normal. No significant plaque. LEFT CAROTID CCA Velocities: Within normal limits. ICA Velocities Peak systolic 70 m/s. End diastolic 24 m/s. Proximal ICA/CCA peak systolic ratio 0.66. Spectra normal. No significant plaque. VERTEBRAL ARTERIES: Antegrade flow. Normal waveforms. SUBCLAVIAN ARTERIES: No finding. OTHER: No other significant finding. IMPRESSION: NO HEMODYNAMICALLY SIGNIFICANT STENOSIS. COMMENT: Quality ID #[id number]: Velocity criteria are extrapolated from the diameter data as defined by t he Society of Radiologists in Ultrasound Consensus Conference. Radiology 2003: 229; 340-346. TECHNICAL DOCUMENTATION: JOB ID: [id number] [id number] 2010 [employer]- All Rights Reserved Reading location - IP/workstation name: [employer]
--- NOTE | 2017-10-26 20:44 | EKG REPORT ---
SEVERITY:- ABNORMAL ECG - ATRIAL FIBRILLATION BORDERLINE LEFT AXIS DEVIATION ABNRM R PROG, CONSIDER ASMI OR LEAD PLACEMENT : Confirmed by: Jae Valverde 26-Oct-2017 17:44:13
[2017-10-26] MEDS: ATORVASTATIN CALCIUM 40 MG TABLET PO SCH (21:49)
--- NOTE | 2017-10-27 05:10 | CONSULTATION REPORT E ---
Consultation Report NAME: JAVID VARGAS : 1950 AGE: 66Y DATE: 10/26/2017 302 A TO: AMBER TRENT M.D. FROM: NESSA HA M.D. Requesting Physician REASON FOR CONSULTATION: The patient admitted with symptoms suggestive of TIA with history of chronic atrial fibrillation with the patient being bradycardiac. HISTORY OF PRESENT ILLNESS: The patient is a 66-year-old, morbidly obese, female with known history of diabetes mellitus, hypertension, chronic atrial fibrillation on Xarelto and history of obstructive sleep apnea, who does not wear a CPAP regularly, admitted with history of left-sided headache with tingling in the face on the left side on , worse on Saturday, which was yesterday, and noticed on the left side the leg was more heavy than the right leg. The patient came in and these symptoms lasted for a few hours and resolved spontaneously. She was admitted here for a CINDER SNAPPER workup for possible stroke. So far, there is no gross evidence of a CVA by imaging of her brain. The patient also was noted to bradycardiac and the patient's heart rate goes into the 40s when the patient goes to sleep, but she is asymptomatic. Note, the patient is morbidly obese and also has a history of obstructive sleep apnea and she does not use CPAP regularly. Note, the patient is not on AV shilpa slowing or blocking agents. The patient denies any chest pain at this time. There is no PND, orthopnea or leg edema. The patient does have shortness of breath on moderate exertion. She denies palpitations or syncope, near syncope or dizziness. There is no prior history of TIA or CVA. There is no bleeding on Xarelto. PAST MEDICAL HISTORY: Positive for: 1. History of hypertension. 2. No history of coronary artery disease. 3. The patient was admitted 02/2017, where she was diagnosed with congestive heart failure secondary to atrial fibrillation and diastolic dysfunction. At that time a left ventricular ejection fraction was normal. She had no significant pulmonary hypertension since there was no good TR assessment. She also in view of the transient chest pain that precipitated the admission, along with the shortness of breath in 02/2017 had a Cardiolite stress test, which showed no scar/OK, but had increased lung uptake and hence pulmonary CT angiogram was ordered at that time, which was negative for pulmonary emboli and had a normal CT angiogram of the chest. 4. She has history of diabetes mellitus type 2, insulin-dependent. 5. She has history of chronic atrial fibrillation. 6. She also has sleep apnea as mentioned early, but no history of asthma, COPD. There is no history of pulmonary embolism. 7. She has no history of thyroid disease. 8. The patient has chronic kidney disease stage 3. 9. No history of TIA or CVA. No history of seizure. 10. No history of anxiety or depression. PAST SURGICAL HISTORY: Positive for hysterectomy. ALLERGIES: The patient has no known allergies. SOCIAL HISTORY: The patient is FULL CODE. She states her brother is her surrogate healthcare decision maker; but in the chart, it says her daughter, Ms. Balbina Ortiz, is also a surrogate healthcare decision maker. The patient does not smoke. There is no history of ETOH abuse. MEDICATIONS: 1. Aspirin 325 mg p.o. x1. 2. Aspirin 81 mg p.o. daily. 3. Atorvastatin 20 mg p.o. nightly. 4. Vitamin D3 1000 units p.o. daily. 5. Cyanocobalamin 1000 mcg intramuscular monthly. 6. Hypoglycemic precautions with Glutose 40% gel, 15 grams and 30 grams p.o. p.r.n.; dextrose 50% 5 grams IV and 20 mg IV, respectively p.r.n. 7. Lasix 40 mg p.o. daily. 8. Glucagon 1 mg IM p.r.n. 9. Lantus insulin 45 units daily. 10. Accu-Chek before breaks, nightly and 3 times a day with regular insulin coverage by sliding scale. 11. Normal saline at 60 mL/hr. 12. KCl 20 mEq p.o. daily. 13. Xarelto 20 mg p.o. daily. REVIEW OF SYSTEMS: CONSTITUTIONAL: Denies any fevers, chills or rigors. Complains of generalized fatigue. HEAD: Left-sided headache, now resolved. The patient has no history of recurrent headaches. No history of head injury. EYES: No history of amblyopia or diplopia. No history of amaurosis fugax. EARS: No history of tinnitus, no history of hearing loss. No history of recurrent ear infections. NOSE: No history of nosebleeds. No history of hay fever. No history of nasal polyps. MOUTH: No history of altered taste sensation. No ulcers in the mouth. No history of bleeding from the gums. THROAT: No odynophagia or dysphagia. No history of recurrent sore throat. SKIN: No psoriasis, no pruritus, no yellowish discoloration of the skin, no eczema. No history of skin cancer. NECK: No painful or painless swelling of the neck. No neck stiffness. LUNGS: No history of asthma or COPD. No recent cough, sputum or wheezing. No history of pulmonary embolism. No history of hemoptysis. No pleuritic chest pain. History of sleep apnea, not regularly using CPAP. CARDIAC: History of hypertension present. History of chronic atrial fibrillation. Patient with bradycardia without any AV shilpa blocking agents, but the patient is asymptomatic and has stable blood pressure. At present, there is no history of PND, orthopnea or leg edema. She has shortness of breath on moderate exertion, but the patient does have history of sleep apnea and also the patient is morbidly obese and deconditioned. MUSCULOSKELETAL: Denies arthritis or collagen vascular disease. RENAL: History of chronic kidney disease stage 3. No symptoms of UTI. No hematuria, pyuria or dysuria. ENDOCRINE: History of diabetes mellitus type 2, insulin requiring. No history of thyroid disease. No polydipsia or polyuria. No history of heat or cold intolerance. No hirsutism. No flushing episodes. CENTRAL NERVOUS SYSTEM: Symptoms of left-sided heaviness of the leg and left tingling of the face, questionable TIA, but workup so far has been negative. No definitive prior history of CVA. History of atrial fibrillation. The patient is on chronic anticoagulation with Xarelto. No seizures. No migraines, although the patient did have a headache on admission. No history of gait imbalance. PSYCHIATRIC: No history of anxiety or depression. No history of suicidal ideation. VASCULAR: No history of calf or buttock claudication. No history of DVT. HEMATOLOGIC: Prior history of anemia. No history of bleeding diathesis or clotting disorder. The rest of the review of systems are negative for any skin rashes or skin lesions. PHYSICAL EXAMINATION: GENERAL: The patient is morbidly obese, but well groomed in no acute distress. VITAL SIGNS: She is afebrile with a temperature of 97.9 degrees Fahrenheit. Pulse 47 beats per minute, irregularly irregular. Blood pressure stable at 137/64, respirations 15 per minute, O2 sat 100% on her room air. HEENT: Head is atraumatic, normocephalic. Eyes: Pupils are equal, round, regular, reactive to light and accommodation. Extraocular movements are normal. There is no conjunctival pallor. There is no scleral icterus. Ears: Tympanic membranes are intact. External auditory canals are clear. Nose: There is no deviation of the nasal septum, there is no inflammation of the nasal mucosa. Mouth: Mucous membranes of the mouth are moist, tongue is moist, there are no ulcers and no bleeding from the gums. Throat: There is no redness of the oropharynx, there are no exudates. SKIN: There are no skin rashes. There are no petechiae or ecchymosis. There is no skin lesion. NECK: Supple. There is no JVD. There is no lymphadenopathy. There is no goiter. Carotids are equal. There is no bruit. Trachea is central. LUNGS: Clear to auscultation and percussion. Due to the patient's obesity, there is diminished air entry bilaterally. There is no chest wall tenderness. HEART: S1, S2 heard. S1 is of variable Intensity. There is no S3 gallop. There is no S4 gallop. There is a systolic murmur left sternal border at the apex. There is no rub. ABDOMEN: Soft, obese, nontender. There is no hepatosplenomegaly. Bowel sounds are well heard. EXTREMITIES: Femorals are very deep. Femorals are diminished. There are no femoral bruits. Leg pulses are diminished. There is no pedal edema. There is no cyanosis or clubbing. There is no DVT or cellulitis. There is no calf tenderness. CENTRAL NERVOUS SYSTEM: The patient is conscious, awake, alert, oriented x3 with no focal deficits. DIAGNOSTIC: The patient's EKG shows atrial fibrillation, borderline left axis deviation, and poor R wave progression, most likely secondary to lead placement. The patient's MRI with MRA showed normal [place]. Normal MRI of the brain without intravenous gadolinium contrast. No evidence of acute stroke. Carotid Doppler studies showed no evidence of hemodynamic significant stenosis. Head CT: No acute intracranial abnormality. Questionable permeated lesion involving the right calvarium measuring 1 cm, correlation with history of myeloma or other etiology that could provide permeated calvarial lesions. The patient MRI that did not show this. The patient's head CTA showed suboptimal evaluation due to contrast timing and technique. No gross abnormalities of intracranial vasculature, suboptimal evaluation for stenosis or aneurysm. If there is clinical concern for intracranial vascular abnormality, repeat imaging or MRA could provide additional characterization. The patient's white count is 9800, hemoglobin 13.2, hematocrit 38.2, MCV low at 79, and platelet count 326,000. Troponin-I negative x3. Sodium 144.9, potassium 3.4, this has been replaced. Chloride 103, CO2 30, BUN 27, creatinine 1.52, GFR 42 mL, which is chronic kidney disease stage 3. Glucose 109, calcium 9.5, magnesium 1.7, direct bilirubin elevated at 0.5. The rest of the liver function tests are normal. Total protein 7.6, albumin 3.9, TSH 0.94, free T4 1.32, free T3 4.13. IMPRESSION: 1. Bradycardia. The patient is with no medication that could cause AV shilpa slowing or blocking. Need to assess for chronotopic incompetence. The patient states she walks several flights of stairs without any problems. Would recommend getting a regular treadmill to make sure that the patient does not have chronotopic incompetence. Also, note the patient's heart rate goes down when she sleeps and hence, her episodes of sleep apnea may also be a cause for bradycardia. The patient has been advised to wear a CPAP. She said she is tolerant to the mask of CPAP and hence will discuss with her primary attending to see of the patient can benefit from a nasal CPAP. Note, the patient is asymptomatic from her bradycardia. 2. Questionable symptoms of transient ischemic attack, resolved. 3. Chronic atrial fibrillation on chronic anticoagulation with bradycardiac response, but hemodynamically stable. 4. Hypertension, well controlled. 5. Diabetes mellitus type 2, insulin dependent. 6. Chronic kidney disease stage 3, seems to be stable. 7. Obstructive sleep apnea, does not wear CPAP. As mentioned earlier, the patient may benefit from a nasal CPAP. 8. Morbid obesity. 9. Dyslipidemia. RECOMMENDATIONS: As mentioned earlier, discussed with the patient the option of getting a treadmill stress test to make sure the patient does not have chronotopic incompetence. At present in view of the patient's stability and patient being asymptomatic, she does not need a permanent pacemaker. Would recommend continue current medication. Would recommend getting a 30-day event monitor on the patient when the patient is discharged. Note, the patient's echo and stress test were within the last 7-8 months; hence, would hold off on repeating this for the moment. Also, since the patient is morbidly obese, the patient's echocardiogram would definitely be suboptimal. Continue her blood pressure medication. Note, the patient at home was on metformin and hence, I agree with stopping the metformin. Note, 55 minutes spent on this patient with more than 50% of the time spent in direct patient care. Medical decision making is of high complexity and medications have been reviewed. The case has been discussed with the patient and also with Dr. Volodymyr Edward, covering for Dr. Ha. We will follow with you. Note, the patient does not have a parks recreation director. She wishes to follow up with me. We will see the patient as an outpatient when discharged. The patient was given my cell number to call me if she has any problems. We will follow the patient in the hospital. Thank you. DICTATING PHYSICIAN: AMBER TRENT M.D. [id number] PHY#: [id number] ID: [id number] JOB#: [id number] ACCT: [id number] cc:AMBER TRENT M.D. >
[2017-10-27 05:18] LABS: ABSOLUTE BASOPHILS # (AUTO) 0.1 10^3/uL (0.0-0.2); ABSOLUTE EOSINOPHILS # (AUTO) 0.1 10^3/uL (0.0-0.6); ABSOLUTE LYMPHOCYTES (AUTO) 1.9 10^3/uL (0.5-4.7); ABSOLUTE MONOCYTES (AUTO) 0.7 10^3/uL (0.1-1.4); ABSOLUTE NEUT (AUTO) 6.3 10^3/uL (1.7-8.2); BASOPHILS % (AUTO) 0.8 % (0-2); EOSINOPHILS % (AUTO) 1.1 % (0-6); HEMATOCRIT 40.5 % (36.0-47.0); HEMOGLOBIN 13.6 g/dL (12.0-15.5); LYMPHOCYTES % (AUTO) 21.2 % (13-45); MEAN CORPUSCULAR HEMOGLOBIN 26.9 pg (27.0-33.4); MEAN CORPUSCULAR HGB CONC 33.6 g/dL (32.0-36.0); MEAN CORPUSCULAR VOLUME 80 fl (80-97); MONOCYTES % (AUTO) 7.5 % (3-13); PLATELET COUNT 311 10^3/uL (150-450); RED BLOOD COUNT 5.06 10^6/uL (3.72-5.28); SEGMENTED NEUTROPHILS % (AUTO) 69.4 % (42-78); TOTAL CELLS COUNTED % (AUTO) 100 %; WHITE BLOOD COUNT 9.1 10^3/uL (4.0-10.5)
[2017-10-27 05:40] LABS: ANION GAP 13 (5-19); BLOOD UREA NITROGEN 25 mg/dL (7-20); CARBON DIOXIDE 31 mmol/L (22-30); CHLORIDE 102 mmol/L (98-107); CHOLESTEROL 143.19 mg/dL (0-200); GLUCOSE 118 mg/dL (75-110); POTASSIUM 4.4 mmol/L (3.6-5.0); SODIUM 146.4 mmol/L (137-145); TRIGLYCERIDES 117 mg/dL (<150)
[2017-10-27 05:50] LABS: DIRECT LDL 82 mg/dL (<100)
[2017-10-27] MEDS: CHOLECALCIFEROL (D3) 1,000 UNIT TABLET PO SCH (09:23)
[2017-10-27] MEDS: POTASSIUM CHLORIDE 10 MEQ TABLET.SA PO SCH (09:23)
[2017-10-27] MEDS: RIVAROXABAN 10 MG TABLET PO SCH (09:29)
[2017-10-27] MEDS: FUROSEMIDE 40 MG TABLET PO SCH (09:29)
[2017-10-27] MEDS: ASPIRIN 81 MG TABLET, ENT COATED PO SCH (09:29)
--- NOTE | 2017-10-27 09:45 | PDOC PROGRESS REPORT ---
Subjective Progress Note for:: 10/27/17 Subjective:: Patient is currently doing well Patient's MRI MRA of the head is all negative for any acute finding Since ultrasound of the carotid is all stable Seen by the senior software engineer analytics because of the bradycardia is currently working Patient's denied any chest pain denied any tingling no numbness Patients walk in the hallway without any problems P.o. intake is good Reason For Visit: TIA Physical Exam Vital Signs: Temp Pulse Resp BP Pulse Ox 97.8 F 99 18 128/61 H 98 10/27/17 08:04 10/27/17 08:04 10/27/17 08:04 10/27/17 08:04 10/27/17 08:04 Intake & Output 10/26/17 10/27/17 10/28/17 06:59 06:59 06:59 Intake Total 2220 Balance 2220 Weight 120 kg 120.4 kg General appearance: PRESENT: no acute distress, well-developed, well-nourished Head exam: PRESENT: atraumatic, normocephalic Eye exam: PRESENT: conjunctiva pink, EOMI, PERRLA. ABSENT: scleral icterus Ear exam: PRESENT: normal external ear exam Mouth exam: PRESENT: moist, tongue midline Neck exam: PRESENT: full ROM. ABSENT: carotid bruit, JVD, lymphadenopathy, thyromegaly Respiratory exam: PRESENT: clear to auscultation [place] Cardiovascular exam: PRESENT: RRR. ABSENT: diastolic murmur, rubs, systolic murmur Pulses: PRESENT: normal dorsalis pedis pul, +2 pedal pulses bilateral Vascular exam: PRESENT: normal capillary refill GI/Abdominal exam: PRESENT: normal bowel sounds, soft. ABSENT: distended, guarding, mass, organolmegaly, rebound, tenderness Rectal exam: PRESENT: deferred Extremities exam: ABSENT: pedal edema Musculoskeletal exam: PRESENT: ambulatory Neurological exam: PRESENT: alert, awake, oriented to person, oriented to place , oriented to time, oriented to situation, reflexes normal, CN II-XII grossly intact. ABSENT: motor sensory deficit Psychiatric exam: PRESENT: appropriate affect, normal mood. ABSENT: homicidal ideation, suicidal ideation Skin exam: PRESENT: dry, intact, warm. ABSENT: cyanosis, rash Results Laboratory Results: 10/27/17 04:18 10/27/17 04:18 10/27/17 10/27/17 04:18 04:18 WBC 9.1 RBC 5.06 Hgb 13.6 Hct 40.5 MCV 80 MCH 26.9 L MCHC 33.6 RDW 18.0 H Plt Count 311 Seg Neutrophils % 69.4 Lymphocytes % 21.2 Monocytes % 7.5 Eosinophils % 1.1 Basophils % 0.8 Absolute Neutrophils 6.3 Absolute Lymphocytes 1.9 Absolute Monocytes 0.7 Absolute Eosinophils 0.1 Absolute Basophils 0.1 Sodium 146.4 H Potassium 4.4 Chloride 102 Carbon Dioxide 31 H Anion Gap 13 BUN 25 H Creatinine 1.39 H Est GFR ( Amer) 46 L Est GFR (Non-Af Amer) 38 L Glucose 118 H Calcium 10.0 Triglycerides 117 Cholesterol 143.19 LDL Cholesterol Direct 82 VLDL Cholesterol 23.0 HDL Cholesterol 40 10/26/17 09:01 Troponin I < 0.012 Impressions: Brain MRI with MRA 10/26/17 00:00 IMPRESSION: NORMAL MRA OF THE [place]. Carotid Doppler Study 10/26/17 00:00 IMPRESSION: NO HEMODYNAMICALLY SIGNIFICANT STENOSIS. Head MRI 10/26/17 00:00 IMPRESSION: NORMAL MRI OF THE BRAIN WITHOUT INTRAVENOUS GADOLINIUM CONTRAST. EVIDENCE OF ACUTE STROKE: NO. Head CT 10/26/17 03:24 IMPRESSION: 1. No acute intracranial abnormality identified. 2. Questionable permeative lesion involving the right calvarium measuring 1.0 cm. Correlation for history of myeloma or other etiology that could produce permeative calvarial lesions recommended. This exam was performed according to our departmental dose-optimization program, which includes automated exposure control, adjustment of the mA and/or kV according to patient size and/or use of iterative reconstruction technique. Head CTA 10/26/17 04:34 IMPRESSION: 1. Suboptimal evaluation due to contrast bolus timing and large [id number] technique. 2. No gross abnormalities of the intracranial vasculature identified. Suboptimal evaluation for stenosis or aneurysm. If there is high clinical concern for intracranial vascular abnormality repeat imaging or MRA could provide additional characterization This exam was performed according to our departmental dose-optimization program, which includes automated exposure control, adjustment of the mA and/or kV according to patient size and/or use of iterative reconstruction technique. Assessment & Plan - Diagnosis (1) TIA (transient ischemic attack) Qualifiers: Transient cerebral ischemia type: unspecified Qualified Code(s): G45.9 - Transient cerebral ischemic attack, unspecified Is this a current diagnosis for this admission?: Yes Plan: Continues to aspirin and Xarelto (2) Atrial fibrillation Qualifiers: Atrial fibrillation type: chronic Qualified Code(s): I48.2 - Chronic atrial fibrillation Is this a current diagnosis for this admission?: Yes Plan: Currently on the Xarelto (3) Bradycardia Is this a current diagnosis for this admission?: Yes Plan: follow with the cardiology (4) Diabetes mellitus type 2 in obese Is this a current diagnosis for this admission?: Yes Plan: Continues a sliding scale (5) Dyslipidemia Is this a current diagnosis for this admission?: Yes Plan: Continues to Lipitor 40 mg p.o. daily (6) Renal insufficiency Is this a current diagnosis for this admission?: Yes Plan: Currently all stable continues to hold the metformin repeat the BMP in the morning - Time Time Spent with patient: 15-24 minutes Medications reviewed and adjusted accordingly: Yes Anticipated discharge: Home Within: within 24 hours - Inpatient Certification Medical Necessity: Need Close Monitoring Due to Risk of Patient Decompensation, Need For IV Fluids Post Hospital Care: D/C Instructor [employer] Documentation - Plan Summary Plan Summary: Is currently doing much better the patient's remain stable next 24 hours patient 's discharge home
--- NOTE | 2017-10-27 21:14 | PROGRESS NOTE E ---
Progress Note NAME: JAVID VARGAS : 1950 AGE: 66Y DATE: 10/27/2017 ROOM: 302 SUBJECTIVE: Note that the patient is ambulating the hallway without any problem. Her heart rate now is in the 90's. She denies any chest pain or discomfort. There is no heaviness or tingling of her face or anywhere, and no heaviness of her left lower extremity. The patient has no PND, orthopnea or leg edema. There is no chest pain or discomfort. The patient continues to be in atrial fibrillation. There is no *------* seen. The patient denies any TIA or CVA. There is no bleeding on Xarelto, and she has no dizziness, PND or syncope. OBJECTIVE: GENERAL: On examination, the patient is a pleasant -[place] female, who is morbidly obese, but in no acute distress. VITAL SIGNS: She is afebrile, with a temperature of 97.8 degrees Fahrenheit. Pulse is 98 beats per minute. Blood pressure is 128/61, her respirations are 18 per minute, O2 sats are 98% on room air. HEENT: Head is atraumatic, normocephalic. Eyes: Pupils are equal, round, regular, reactive to light and accommodation. Extraocular movements are normal. There is no conjunctival pallor. There is no scleral icterus. ENT is negative. NECK: Supple. There is no JVD. Carotids are equal. There is no bruit. There is no lymphadenopathy. There is no goiter. Trachea is central. LUNGS: Show, due to the patient's obesity, diminished air entry bilaterally. Otherwise, lungs are clear, without any rhonchi, rales or wheezing. HEART: S1, S2 heard. There is no S3 gallop. There is no S4 gallop. S1 is of variable intensity. There is a systolic murmur at the left sternal border, at the apex. There is no rub. ABDOMEN: Soft, obese, nontender. There is no hepatosplenomegaly. Bowel sounds are well-healed. There are no tender areas or masses. EXTREMITIES: Femorals are deep. Femorals are diminished. There is no femoral bruit. Leg pulses are diminished. There is no pedal edema. There is no cyanosis or clubbing. There is no DVT or cellulitis. There is no calf tenderness. CHARGE NURSE: The patient is conscious, awake, alert, oriented x3, with no focal deficits. PSYCHIATRIC: The patient's judgment and insight are intact. Her affect is normal. LABORATORY DATA: The patient's white count is 9100, hemoglobin is 13.6, hematocrit is 40.5 and platelet count is 311,000. The patient's sodium is 146.4, potassium 4.4, chloride is 102, CO2 is 71. The patient's BUN is 25, creatinine is 1.39. GFR has improved to 46 mL/min, which is still stage III chronic kidney disease. The patient's glucose is 118. The patient's calcium is 10. The patient's triglycerides are good at 117. Her total cholesterol is 143.19. LDL cholesterol is good at 82. HDL cholesterol is borderline at 40. IMPRESSION: 1. BRADYCARDIA. Seems to have resolved at present. Most likely secondary to sleep apnea, but would recommend that the patient, as an outpatient, have a 30-day event monitor. This has been discussed with the patient. 2. QUESTIONABLE SYMPTOMS OF TRANSIENT ISCHEMIC ATTACK, RESOLVED. No recurrence. 3. CHRONIC ATRIAL FIBRILLATION, ON CHRONIC ANTICOAGULATION. At present, heart rate in the 90s. As mentioned earlier, would recommend getting a 30-day event monitor to see how low the patient's heart goes. Also, the patient has shown that she has no chronotropic incompetence since when the patient ambulates, her heart rate goes into the 90s. Hence, I do not think the patient needs a treadmill stress test, EKG-guided, to see if the patient has chronotropic incompetence. 4. HYPERTENSION, WELL-CONTROLLED. 5. DIABETES MELLITUS, INSULIN-DEPENDENT. 6. CHRONIC KIDNEY DISEASE, STAGE III. Seems to have improved. 7. OBSTRUCTIVE SLEEP APNEA. As mentioned earlier, does not wear CPAP. She states that she had a sleep study about 3 years ago. Will see if the sleep study needs to be repeated. I have also discussed with the patient that there are new options, where she could get nasal CPAP. 8. MODERATE OBESITY. The patient has been counseled to exercise and diet and lose weight. 9. HYPERLIPIDEMIA, WITH GOOD LDL AND TRIGLYCERIDE LEVELS AND BORDERLINE HDL LEVEL. Exercise and losing weight may increase the HDL. This has been discussed with the patient. PLAN: Note that medications have been reviewed. Note that I have discussed the option of getting a 30-day event monitor after discharge, and also a repeat sleep study, if needed. Will discuss with Dr. Matias when he comes back tomorrow. Note, medical decision-making is of moderate complexity; hence, since the patient at present is stable, will sign off, but will discuss with Dr. Matias about further outpatient workup that is needed. Note that the patient desires to follow up with me. I have given her my cell phone number, and she can call me to set up an appointment to see me as an outpatient. DICTATING PHYSICIAN: AMBER TRENT M.D. [id number] PHY#: [id number] ID: [id number] JOB#: [id number] ACCT: [id number] cc: >
[2017-10-27] MEDS: ATORVASTATIN CALCIUM 40 MG TABLET PO SCH (21:15)
[2017-10-28 05:42] LABS: ANION GAP 14 (5-19); BLOOD UREA NITROGEN 26 mg/dL (7-20); CALCIUM 9.5 mg/dL (8.4-10.2); CARBON DIOXIDE 29 mmol/L (22-30); CHLORIDE 103 mmol/L (98-107); GLUCOSE 116 mg/dL (75-110); POTASSIUM 3.8 mmol/L (3.6-5.0)
[2017-10-28] MEDS: RIVAROXABAN 10 MG TABLET PO SCH (09:17)
[2017-10-28] MEDS: ASPIRIN 81 MG TABLET, ENT COATED PO SCH (09:18)
[2017-10-28] MEDS: CHOLECALCIFEROL (D3) 1,000 UNIT TABLET PO SCH (09:18)
[2017-10-28] MEDS: FUROSEMIDE 40 MG TABLET PO SCH (09:18)
[2017-10-28] MEDS: POTASSIUM CHLORIDE 10 MEQ TABLET.SA PO SCH (09:18)
[2017-10-28 19:45] VITALS: BP 135/57
--- NOTE | 2017-10-29 19:45 | PDOC DISCHARGE SUMMARY ---
General - Admit/Disc Date/PCP Admission Date/Primary Care Provider: 10/26/17 05:50 Discharge Date: 10/28/17 - Additional Information Resuscitation Status: Full Code Home Medications: Atorvastatin Calcium [Lipitor 40 mg Tablet] 40 mg PO QHS 02/15/17 Cholecalciferol (Vitamin D3) [Vitamin D3] 1,000 unit PO DAILY 02/15/17 Cyanocobalamin (Vitamin B-12) [Vitamin B-12 Inj 1000 Mcg/1 ml Vial] 1,000 mcg IM .MONTHLY MDD already had may's dose 02/15/17 Metformin HCl [Glucophage] 1,000 mg PO BIDBS 02/15/17 Furosemide [Lasix 40 mg Tablet] 40 mg PO DAILY #30 tablet 02/18/17 Potassium Chloride [K-Tab ER] 20 meq PO DAILY #30 tablet.er 02/18/17 Amlodipine/Valsartan/Hcthiazid [Dclij-Eiaxq-Ictf 5-160-25 mg] 1 each PO DAILY Insulin Glargine,Hum.rec.anlog [Toujeo Solostar] 45 unit SQ DAILY 10/26/17 Rivaroxaban [Xarelto 10 mg Tablet] 20 mg PO DAILY 10/26/17 History of Present Illness Patient complains of: left sided weakness and tingling. History of Present Illness: JAVID VARGAS is a 66 year old female known to my practice who presented to the ED with left sided weakness and tingling. Due to her morbidities and concern for possible stroke in evolution she was admitted for further evaluation and management. Her radiographic and ultrasound assessment were negative for any acute pathology to account for her symptoms. Patient did admit to missing her Xarelto for 2 days while traveling in [place] before presenting to the hospital with left sided weakness and tingling. Hospital Course Hospital Course: Patient's evaluation for possible etiology of TIA was unrevealing. Her bradycardia was related to obstructive sleep apnea. She was not compliant with full face mask usage with CPAP machine at home. She denied any chest pain, palpitation, difficulty with breathing, nausea, vomiting or abdominal pain. She was seen in consultation by Dr Rosas, expediter clerk, due to observed bradycardia while sleeping. She has history of obstructive sleep apnea and not compliant with device usage. She is agreeable to discharge home today. she will follow up in the office as instructed upon discharge. Physical Exam Vital Signs: Temp Pulse Resp BP Pulse Ox 98.3 F 77 18 135/84 H 97 10/28/17 15:21 10/28/17 15:21 10/28/17 15:21 10/28/17 15:21 10/28/17 15:21 Intake & Output 10/27/17 10/28/17 10/29/17 06:59 06:59 06:59 Intake Total 2220 951 1000 Balance 2220 951 1000 Weight 120.4 kg 121.1 kg General appearance: PRESENT: no acute distress, morbidly obese Head exam: PRESENT: atraumatic, normocephalic Eye exam: PRESENT: conjunctiva pink, EOMI, PERRLA. ABSENT: scleral icterus Mouth exam: PRESENT: moist Respiratory exam: PRESENT: clear to auscultation khushbu Cardiovascular exam: PRESENT: irregular rhythm, +S1, +S2. ABSENT: diastolic murmur, systolic murmur Pulses: PRESENT: normal carotid pulses, normal dorsalis pedis pul, +2 pedal pulses bilateral Vascular exam: PRESENT: normal capillary refill. ABSENT: pallor GI/Abdominal exam: PRESENT: normal bowel sounds, soft. ABSENT: distended, guarding, mass, organolmegaly, rebound, tenderness Extremities exam: ABSENT: pedal edema Musculoskeletal exam: PRESENT: ambulatory Neurological exam: PRESENT: alert, awake, oriented to person, oriented to place , oriented to time, oriented to situation, CN II-XII grossly intact. ABSENT: motor sensory deficit Skin exam: PRESENT: dry, intact, warm. ABSENT: cyanosis, rash Results Laboratory Results: 10/27/17 04:18 10/28/17 04:33 10/28/17 04:33 Sodium 146.0 H Potassium 3.8 Chloride 103 Carbon Dioxide 29 Anion Gap 14 BUN 26 H Creatinine 1.32 H Est GFR ( Amer) 49 L Est GFR (Non-Af Amer) 40 L Glucose 116 H Calcium 9.5 10/26/17 09:01 Troponin I < 0.012 Impressions: Brain MRI with MRA 10/26/17 00:00 IMPRESSION: NORMAL MRA OF THE AMBLER OF BLAKELY. Carotid Doppler Study 10/26/17 00:00 IMPRESSION: NO HEMODYNAMICALLY SIGNIFICANT STENOSIS. Head MRI 10/26/17 00:00 IMPRESSION: NORMAL MRI OF THE BRAIN WITHOUT INTRAVENOUS GADOLINIUM CONTRAST. EVIDENCE OF ACUTE STROKE: NO. Head CT 10/26/17 03:24 IMPRESSION: 1. No acute intracranial abnormality identified. 2. Questionable permeative lesion involving the right calvarium measuring 1.0 cm. Correlation for history of myeloma or other etiology that could produce permeative calvarial lesions recommended. This exam was performed according to our departmental dose-optimization program, which includes automated exposure control, adjustment of the mA and/or kV according to patient size and/or use of iterative reconstruction technique. Head CTA 10/26/17 04:34 IMPRESSION: 1. Suboptimal evaluation due to contrast bolus timing and large [id number]-ir-[id number] technique. 2. No gross abnormalities of the intracranial vasculature identified. Suboptimal evaluation for stenosis or aneurysm. If there is high clinical concern for intracranial vascular abnormality repeat imaging or MRA could provide additional characterization This exam was performed according to our departmental dose-optimization program, which includes automated exposure control, adjustment of the mA and/or kV according to patient size and/or use of iterative reconstruction technique. Qualifiers - * PATIENT BEING DISCHARGED WITH ANY OF THE FOLLOWING DIAGNOSIS: No Plan Discharge Plan: Maintain on all preadmission medications. Emphasized compliance with medications. Follow up in office as instructed upon discharge. I will discuss with her CPAP DME supplier [employer] regarding provision of nasal mask to improve compliance at home. Time Spent: Greater than 30 Minutes - More than 50% of my face to face time was spent in counseling and care coordination to improve usage of CPAP machine and post discharge plan.
[2017-10-31] MEDS ORDERED: CYANOCOBALAMIN (VITAMIN B-12) INJ 1000 MCG/1 ML VIAL IM SCH (09:30)
== END 2017-10-28 20:10 | disposition home or self-care (01) ==
LOC: ER 02:58 → EH 05:50 → INTOOBSV 05:50 → 3N 06:20
PROVIDERS: ADMIT Family Medicine; ATTEND Internal Medicine Geriatric Medicine
DX: G45.9 Transient cerebral ischemic attack, unspecified (principal); I48.2 Chronic atrial fibrillation; R00.1 Bradycardia, unspecified; I12.9 Hypertensive chronic kidney disease with stage 1 through stage 4 chronic kidney disease, or unspecified chronic kidney disease; E11.22 Type 2 diabetes mellitus with diabetic chronic kidney disease; N18.3 Chronic kidney disease, stage 3 (moderate); E78.5 Hyperlipidemia, unspecified; N28.9 Disorder of kidney and ureter, unspecified; E66.01 Morbid (severe) obesity due to excess calories; G47.33 Obstructive sleep apnea (adult) (pediatric); Z91.19 Patient's noncompliance with other medical treatment and regimen; R53.83 Other fatigue; R01.1 Cardiac murmur, unspecified; Z68.41 Body mass index [BMI] 40.0-44.9, adult; Z79.01 Long term (current) use of anticoagulants; Z79.4 Long term (current) use of insulin; Z82.49 Family history of ischemic heart disease and other diseases of the circulatory system; Z79.82 Long term (current) use of aspirin; Z79.899 Other long term (current) drug therapy
CPT/HCPCS: 93005; 99285; 36415 ×3; 84439; 82962 ×3; 83735; 84443; 85025 ×2; 80048 ×2; 80053; 81001; 84484; 84481; 80061; 93880; 70551; 70544; 70450; 70496; 93010; 97161; G0378 ×3; A9270 ×15; J7030; G8978; G8979; G8980

== ENCOUNTER → 2018-01-09 | Outpatient (CLI) | payer MEDICARE, MEDICAID ==
--- NOTE | 2018-01-09 13:04 | WOMENS IMAGING REPORT ---
EXAM DESCRIPTION: 3D SCREENING MAMMO BILAT COMPLETED DATE/TIME: 01/09/2018 11:45 am REASON FOR STUDY: SCREENING MAMMO Z12.31 ENCNTR SCREEN MAMMOGRAM FOR MALIGNANT NEOPLASM OF PARDEEP COMPARISON: Multiple since 2010 TECHNIQUE: Standard craniocaudal and mediolateral oblique views of each breast recorded using digita l acquisition and breast tomosynthesis. LIMITATIONS: None. FINDINGS: Findings present which are benign by mammographic criteria. No suspicious masses, calcifi cations or architectural distortion. Pertinent benign findings: Benign bilateral breast parenchymal and skin calcifications are present Read with the assistance of CAD. .[facility] - R2 Cenova Version 1.3 .[facility] - R2 Cenova Version 1.3 .[facility] Imaging - R2 Cenova Version 2.4 .[facility] - R2 Cenova Version 2.4 .[facility] - R2 D[employer] Worker Version 9.2 Benign mammographic findings may include one or more of the following: Smooth masses, popcorn/rim/co arse calcifications, asymmetries, post-procedure changes, and lesions with long-standing stability. IMPRESSION: BENIGN MAMMOGRAPHIC FINDINGS. BIRADS 2 BREAST DENSITY: b. There are scattered areas of fibroglandular density. BIRAD: 2 BENIGN FINDING(S) RECOMMENDATION: RECOMMENDATION: ROUTINE SCREENING Please continue yearly bilateral screening tomosynthesis in January 2019 COMMENT: The patient has been notified of the results by letter per SA requirements. Additional no tification policies are in place for contacting patient with suspicious or incomplete findings. Quality ID #[id number]: The [employer] recommends an annual screening mammogram for women aged 40 years or over. This facility utilizes a reminder system to ensure that all patients receive reminder letters, and/or direct phone calls for appointments. This includes reminders for routine scr eening mammograms, diagnostic mammograms, or other Breast Imaging Interventions when appropriate. Th is patient will be placed in the appropriate reminder system. The [employer] (ACR) has developed recommendations for screening MRI of the breast s in certain patient populations, to be used in conjunction with mammography. Breast MRI surveillanc e may be appropriate for women with more than 20% lifetime risk of developing breast cancer as deter mined by genetic testing, significant family history of the disease, or history of mantle radiation f or Hodgkins Disease. ACR Practice Guidelines 2008. DBT Technology DBT is a type of tomographic mammography. With conventional mammography, overlapping breast tissue ma y make lesions difficult to detect, even with good compression. DBT uses an x-ray tube that rotates a round the breast, taking images at different angles. These images are then combined to create thin sl ices of the breast that the radiologist can view as a 3D reconstruction. The [employer] unit can perform full-field digital mammograms (2D imaging); or DBT (3D imaging); or both, in a combination mode that quickly performs both the mammogram and the tomosynthesis scan while the breast is still compressed. PQRS 6045F: Fluoroscopic imaging is not utilized for breast tomosynthesis. TECHNICAL DOCUMENTATION: FINDING NUMBER: (1) ASSESSMENT: (1) JOB ID: [id number] [employer]- All Rights Reserved Reading location - IP/workstation name: [email or web address]
== END ==
LOC: WI 11:00
PROVIDERS: ATTEND Internal Medicine Geriatric Medicine
DX: Z12.31 Encounter for screening mammogram for malignant neoplasm of breast (principal)
CPT/HCPCS: 77063; 77067

== ENCOUNTER 2018-04-18 22:17 | Emergency (ER) | payer MEDICARE, MEDICAID ==
[2018-04-18] MEDS ORDERED: HYDROMORPHONE HCL INJ/PF 2 MG/ML AMPULE IV ONE (22:30)
[2018-04-18] MEDS ORDERED: HYDROMORPHONE HCL INJ/PF 2 MG/ML AMPULE ONE (22:31)
[2018-04-18] MEDS ORDERED: KETOROLAC TROMETHAMINE INJ/PF 30 MG/1 ML SDV IV ONE (22:32)
--- NOTE | 2018-04-18 22:33 | ER Document Report ---
ED Fall - General Stated Complaint: RIGHT SHOULDER PAIN Time Seen by Provider: 04/18/18 22:24 Notes: Patient is a 67-year-old female with a past medical history of hypertension, diabetes, atrial fibrillation, morbid obesity who presents after a mechanical slip and fall in which she struck her right shoulder and right upper back as well as right hip against a wall in a bathroom. Initially there was concern of possible head trauma but the patient does clarify on initial examination that she did not strike her head or neck. The patient is reporting severe, constant , throbbing pain to the right shoulder and humerus region. She states any attempt at moving the shoulder dramatically worsens the pain. She has received fentanyl from EMS which she states provided minimal to no pain relief. Denies any history of similar injury in the past. Denies any associated weakness or numbness. No nausea or vomiting. She has been able to walk since the accident. TRAVEL OUTSIDE OF THE [place] IN LAST 30 DAYS: No - Related data Allergies/Adverse Reactions: No Known Allergies Allergy (Verified 04/18/18 22:44) Past Medical History - General Information source: Patient - Social History Smoking Status: Never Smoker Frequency of alcohol use: None Drug Abuse: None Lives with: Family Family History: Reviewed & Not Pertinent, Hypertension - Past Medical History Cardiac Medical History: Reports: Hx Atrial Fibrillation, Hx Hypercholesterolemia, Hx Hypertension Denies: Hx Heart Attack Pulmonary Medical History: Denies: Hx Asthma, Hx Bronchitis, Hx COPD, Hx Pneumonia Neurological Medical History: Denies: Hx Cerebrovascular Accident, Hx Seizures Endocrine Medical History: Reports: Hx Diabetes Mellitus Type 2 Renal/ Medical History: Denies: Hx Peritoneal Dialysis Musculoskeletal Medical History: Denies Hx Arthritis Psychiatric Medical History: Reports: Hx Anxiety Denies: Hx Depression Past Surgical History: Reports: Hx Hysterectomy - Immunizations Hx Diphtheria, Pertussis, Tetanus Vaccination: Yes Review of Systems - Review of Systems Notes: Constitutional: Negative for fever. Eyes: Negative for visual changes. ENT: Negative for facial injury Cardiovascular: Negative for chest injury. Respiratory: Negative for shortness of breath. Gastrointestinal: Negative for abdominal injury. Genitourinary: Negative for genital injury Musculoskeletal: Positive for right shoulder injury and right shoulder pain. Positive for right hip pain. Skin: Negative for laceration/abrasions. Neurological: Negative for head injury. Physical Exam - Vital signs Vitals: Temp Pulse Resp BP Pulse Ox 98.1 F 89 20 161/51 H 97 04/18/18 22:24 04/18/18 22:24 04/18/18 22:24 04/18/18 22:24 04/18/18 22:24 Interpretation: Hypertensive Notes: PHYSICAL EXAMINATION: GENERAL: Appears to be in significant pain HEAD: Atraumatic, normocephalic. No evidence of head trauma EYES: Pupils equal round and reactive to light, extraocular movements intact, sclera anicteric, conjunctiva are normal. ENT: nares patent, no oral pharyngeal trauma. No hemotympanum, no Romero's sign , no raccoon eyes. NECK: No midline cervical spine tenderness. Patient able to move their head to 45 bilaterally without any discomfort. LUNGS: Breath sounds clear to auscultation bilaterally and equal. No wheezes rales or rhonchi. HEART: Regular rate and rhythm without murmurs. CHEST WALL: No ecchymosis over the chest wall. ABDOMEN: Soft, nontender, normoactive bowel sounds. No guarding, no rebound. No abdominal bruising EXTREMITIES: Patient is holding her arm elevated on pillows on the right side. Severe pain with any attempt at range of motion testing of the right shoulder. Patient also has focal pain on palpation of the right hip joint. Extremity exam otherwise unremarkable. BACK: No midline spinal tenderness, step-offs, or deformities. NEUROLOGICAL: RMU motor and sensory distribution intact bilaterally. PSYCH: Highly anxious SKIN: Warm, Dry, normal turgor, no rashes or lesions noted. Course - Re-evaluation Re-evalutation: 04/18/18 22:32 Presentation of a well patient in no acute distress, vitals within normal limits after a mechanical fall. Patient did not strike her head based on her report to me. She has no evidence of head trauma on examination. She states that the entirety of her pain is located in her right shoulder and upper back where she directly hit against the wall. No indication therefore for imaging of the head or cervical spine. Chest and abdominal exam are benign without any focal tenderness, shortness of breath, or bruising over the chest or abdominal wall. Patient has no flank tenderness. Patient's main focus of complaint was right shoulder and right humerus pain. RMU motor and sensory distribution intact the right upper extremity including against resistance on motor testing. The patient will undergo x-rays of the right shoulder, right humerus. She is also complaining of pain to the right hip and does have focal tenderness to the right hip joint. A x-ray of the right hip is likewise pending. 04/18/18 22:56 Right shoulder x-ray does show findings consistent with an acute anterior dislocation. No evidence of humeral fracture on bedside review. Will proceed with procedural sedation. Given the patient's morbid obesity, will place on BiPAP during sedation with propofol. Given the patient's size I do anticipate a difficult reduction. 04/19/18 00:00 Patient tolerated reduction without any complication. Has had improvement of pain and is currently tolerating the sling well. Orthopedic follow-up has been recommended. The hip x-ray unremarkable otherwise. At this time will discharge with return precautions and follow-up recommendations. Verbal discharge instructions given a the bedside and opportunity for questions given. Medication warnings reviewed. Patient is in agreement with this plan and has verbalized understanding of return precautions and the need for primary care follow-up in the next 24-72 hours. - Vital Signs Vital signs: Temp Pulse Resp BP Pulse Ox 98.1 F 53 L 18 117/56 L 97 04/18/18 22:24 04/18/18 23:26 04/19/18 00:56 04/19/18 00:56 04/19/18 00:56 - Diagnostic Test Radiology reviewed: Image reviewed, Reports reviewed Radiology results interpreted by me: 04/19/18 00:01 Right shoulder x-ray: Humeral head fracture anterior dislocation of the right shoulder Procedures - Conscious Sedation Conscious sedation Time started: 22:50 Time completed: 23:26 Consent obtained: Yes Indication: Right shoulder reduction Prior complications: Procedural sedation Normal healthy pt.: P1. - ASA Classification Airway Evaluation: Neck immobility, Obese Mallampati Classification: Class 2 Used during procedure: Suction available, IV access obtained, Pulse ox on pt., panel monitor on pt. Medications administered: Diprivan Reversal agents: None, Narcan I personally performed/intraservice time: Sedation, Procedure, 30 min or less Complications: Yes - Joint Reduction/Fracture Care Right Shoulder Time completed: 23:10 Consent obtained: Yes Conscious sedation: Yes Pre-procedure NV exam: Yes Fracture: Other - Right anterior shoulder dislocation Manipulation comment: Downward traction and external rotation Post-procedure NV exam: Yes Post-reduction x-ray: Joint reduced Reduction attempts: 1 Complications: No Discharge - Discharge Clinical Impression: Fall Qualifiers: Encounter type: initial encounter Qualified Code(s): W19.XXXA - Unspecified fall, initial encounter Dislocation of right shoulder joint Qualifiers: Encounter type: initial encounter Qualified Code(s): S43.004A - Unspecified dislocation of right shoulder joint, initial encounter Condition: Good Disposition: HOME, SELF-CARE Additional Instructions: Your shoulder was dislocated today. This was reduced. Please wear the sling as needed for comfort. Follow-up with orthopedic surgery in the next 5 days. You should continue to take anti-inflammatories such as ibuprofen 600 mg every 6 hours for pain. Continue to apply ice to the area is much your able. Please return immediately if you develop weakness, numbness, spreading redness from the area, or any other symptoms that are concerning to you. Prescriptions: Tramadol HCl [Ultram 50 mg Tablet] 50 mg PO Q6HP PRN #8 tablet PRN Reason: Referrals: NESSA HA MD [Primary Care Provider] - Follow up as needed RACHELE MENCHACA MD [ACTIVE STAFF] - Follow up in 3-5 days
[2018-04-18] MEDS ORDERED: PROPOFOL INJ 200 MG/20 ML VIAL IV ONE ×2 (22:51→22:56)
[2018-04-18] MEDS ORDERED: ETOMIDATE INJ/PF 20 MG/10 ML SDV IV ONE (23:11)
--- NOTE | 2018-04-18 23:54 | RADIOLOGY REPORT (SQ) ---
EXAM DESCRIPTION: XR HIP 2 OR MORE VIEWS COMPLETED DATE/TME: 04/18/2018 22:31 CLINICAL HISTORY: 67 years, Female, fall, pain COMPARISON: EXAM DESCRIPTION: CLINICAL HISTORY: fall, pain COMPARISON: None FINDINGS: 3 view(s) submitted. No fracture or dislocation is identified. Bone marrow attenuation is unremarkable. Detail is quite limited. IMPRESSION: No acute fracture or dislocation. NUMBER OF VIEWS: TECHNIQUE: LIMITATIONS: None. FINDINGS: IMPRESSION: 2010 [facility] [employer]- All Rights Reserved
--- NOTE | 2018-04-18 23:59 | RADIOLOGY REPORT (SQ) ---
EXAM DESCRIPTION: XR HUMERUS COMPLETED DATE/TME: 04/18/2018 22:31 CLINICAL HISTORY: 67 years Female, fall, pain COMPARISON: None. Limitation: 2 VIEWS Position Findings: Complete anterior dislocation of the right humeral head. Deformity/fracture of the right humeral head and surgical neck.. 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 IMPRESSION: Anterior dislocation of the right glenohumeral joint. Deformity/fracture of the right humeral head and surgical neck. Limitation.
--- NOTE | 2018-04-19 00:02 | RADIOLOGY REPORT (SQ) ---
3 VIEWS OF THE RIGHT SHOULDER HISTORY: Shoulder pain after fall. COMPARISON: None. FINDINGS: Pre-reduction radiographs demonstrate anterior inferior dislocation of the humeral head with respect to the glenoid. No definite fracture fragment is seen although evaluation is limited due to patient positioning. Post-reduction radiograph demonstrates interval reduction of glenohumeral dislocation. No fracture fragment is visualized on this study. IMPRESSION: Successful reduction of anterior inferior glenohumeral dislocation.
[2018-04-19] MEDS ORDERED: TRAMADOL HCL 50 MG TABLET PO ONE (00:59)
[2018-04-19 01:35] VITALS: BP 117/56
== END 2018-04-19 01:35 | disposition home or self-care (01) ==
LOC: ER 22:17
DX: S42.291A Other displaced fracture of upper end of right humerus, initial encounter for closed fracture (principal); S42.211A Unspecified displaced fracture of surgical neck of right humerus, initial encounter for closed fracture; M25.551 Pain in right hip; M54.89 Other dorsalgia; W01.0XXA Fall on same level from slipping, tripping and stumbling without subsequent striking against object, initial encounter; I10 Essential (primary) hypertension; E11.9 Type 2 diabetes mellitus without complications; E66.01 Morbid (severe) obesity due to excess calories
CPT/HCPCS: 99284; 99153; 99152; 96374; 96375; 73502; 73060; 73020; 73030; 94660; 23675; L3650; J1885; J1170; J2704; A9270

== ENCOUNTER → 2019-01-14 | Outpatient (CLI) | payer MEDICARE, MEDICAID ==
--- NOTE | 2019-01-14 10:04 | WOMENS IMAGING REPORT ---
EXAM DESCRIPTION: 3D SCREENING MAMMO BILAT COMPLETED DATE/TIME: 01/14/2019 7:51 am REASON FOR STUDY: Z12.31 ENCOUNTER FOR SCREENING MAMMOGRAM FOR MALIGNANT NEOPLASM OF BREAST Z12.31 ENCNTR SCREEN MAMMOGRAM FOR MALIGNANT NEOPLASM OF PARDEEP COMPARISON: 2014 through 2017 EXAM PARAMETERS: Standard craniocaudal and mediolateral oblique views of each breast recorded using digital acquisition and breast tomosynthesis. Read with the assistance of CAD. .[facility] - [employer] Version 9.2 LIMITATIONS: None. FINDINGS: Findings present which are benign by mammographic criteria. No suspicious masses, calcific ations or architectural distortion. Pertinent benign findings: Benign calcifications. Stable appearance. Benign mammographic findings may include one or more of the following: Smooth masses, popcorn/rim/coa rse calcifications, asymmetries, post-procedure changes, and lesions with long-standing stability. IMPRESSION: BENIGN MAMMOGRAPHIC FINDINGS. BIRADS 2 BREAST DENSITY: b. There are scattered areas of fibroglandular density. BIRAD: ASSESSMENT: 2 BENIGN FINDING(S) RECOMMENDATION: ROUTINE SCREENING COMMENT: The patient has been notified of the results by letter per SA requirements. Additional no tification policies are in place for contacting patient with suspicious or incomplete findings. Quality ID #225: [employer] [place] [employer] recommends an annual screening mammogram for women aged 40 years or over. This facility utilizes a reminder system to ensure that all patients receive reminder letters, and/or direct phone calls for appointments. This includes reminders for routine scr eening mammograms, diagnostic mammograms, or other Breast Imaging Interventions when appropriate. Th is patient will be placed in the appropriate reminder system. TECHNICAL DOCUMENTATION: FINDING NUMBER: (1) ASSESSMENT: (1) JOB ID: [id number] [employer]- All Rights Reserved Reading location - IP/workstation name: [email or web address]
== END ==
LOC: WI 07:27
PROVIDERS: ATTEND Internal Medicine Geriatric Medicine
DX: Z12.31 Encounter for screening mammogram for malignant neoplasm of breast (principal)
CPT/HCPCS: 77063; 77067

== ENCOUNTER 2019-01-23 07:58 | Day surgery (SDC) | payer MEDICARE, MEDICAID ==
[~2019-01-23 07:58] MED LIST: PROPOFOL INJ 200 MG/20 ML VIAL IV ONE
[2019-01-23 09:30] VITALS: BP 143/54
--- NOTE | 2019-01-23 11:34 | Operative Report ---
Operative Report DATE OF SURGERY: 01/23/19 PREOPERATIVE DIAGNOSIS: Colorectal cancer screening POSTOPERATIVE DIAGNOSIS: Not able to proceed with procedure. Patient's procedure was canceled per anesthesia. She was noted to have A. fib of unknown duration. Cardiology work-up will need to be done. Reschedule colonoscopy OPERATION: Procedure canceled secondary to A. fib SURGEON: HUONG JAIN TISSUE REMOVED OR ALTERED: None. COMPLICATIONS: None. ESTIMATED BLOOD LOSS: None. INTRAOPERATIVE FINDINGS: Not able to proceed with procedure. No anesthesia provided. Scope was not started. PROCEDURE: Patient will be discharged Cardiology work-up prior to scheduling further colonoscopy evaluation.
--- NOTE | 2019-01-24 10:19 | EKG REPORT ---
SEVERITY:- ABNORMAL ECG - ATRIAL FIBRILLATION LEFT AXIS DEVIATION ABNRM R PROG, CONSIDER ASMI OR LEAD PLACEMENT NONSPECIFIC T ABNORMALITIES, LATERAL LEADS : Confirmed by: Jae Valverde 24-Jan-2019 10:17:59
== END 2019-01-23 10:15 | disposition home or self-care (01) ==
LOC: END 07:58
PROVIDERS: ATTEND Internal Medicine Gastroenterology
DX: Z12.11 Encounter for screening for malignant neoplasm of colon (principal); Z86.010 Personal history of colon polyps; Z53.09 Procedure and treatment not carried out because of other contraindication; E78.5 Hyperlipidemia, unspecified; E11.9 Type 2 diabetes mellitus without complications; I10 Essential (primary) hypertension; Z79.899 Other long term (current) drug therapy; Z79.4 Long term (current) use of insulin; Z79.01 Long term (current) use of anticoagulants; I48.91 Unspecified atrial fibrillation; G47.33 Obstructive sleep apnea (adult) (pediatric); D64.9 Anemia, unspecified; E66.9 Obesity, unspecified; Z68.41 Body mass index [BMI] 40.0-44.9, adult
CPT/HCPCS: 82962; 93005; 93010; J2704

== ENCOUNTER → 2019-03-11 | Outpatient (CLI) | payer MEDICARE, MEDICAID ==
--- NOTE | 2019-03-11 11:14 | RADIOLOGY REPORT (SQ) ---
EXAM DESCRIPTION: CAROTID DOPPLER COMPLETED DATE/TIME: 03/11/2019 11:02 am REASON FOR STUDY: PVD TYPE II DIABETES E11.43 TYPE 2 DIABETES W DIABETIC AUTONOMIC (POLY)NEUROPATHY COMPARISON: 10/26/2017 TECHNIQUE: Grayscale ultrasound, Doppler velocity and spectra, and color Doppler images acquired of the extra-cranial carotid and vertebral arteries. Images stored on PACS. LIMITATIONS: None. FINDINGS: RIGHT CAROTID CCA Velocities: Within normal limits. ICA Velocities Peak systolic 1.06 m/s. End diastolic 0.29 m/s. Proximal ICA/CCA peak systolic ratio 0.71. Spectra normal. No significant plaque. LEFT CAROTID CCA Velocities: Within normal limits. ICA Velocities Peak systolic 0.89 m/s. End diastolic 0.25 m/s. Proximal ICA/CCA peak systolic ratio 0.65. Spectra normal. No significant plaque. VERTEBRAL ARTERIES: Antegrade flow. Normal waveforms. SUBCLAVIAN ARTERIES: No finding. OTHER: No other significant finding. IMPRESSION: NO HEMODYNAMICALLY SIGNIFICANT STENOSIS. COMMENT: Quality ID #[id number]: Velocity criteria are extrapolated from the diameter data as defined by t he Society of Radiologists in Ultrasound Consensus Conference. Radiology 2003: 229; 340-346. TECHNICAL DOCUMENTATION: JOB ID: [id number] [employer]- All Rights Reserved Reading location - IP/workstation name: [email or web address]
--- NOTE | 2019-03-11 16:22 | XCELERA REPORT ---
[address] [address] Lower Extremity Arterial Evaluation Name: PAULIE VARGAS Age: 68 yrs Gender: Female : 1950 Patient Status: Outpatient Patient Location: Study Date: 03/11/2019 08:32 AM Procedure: A color flow and duplex scan of the lower extremity arteries was performed bilaterally with velocity and waveform anaylsis. Reason For Study: PVD TYPE II DIABETES Ordering Physician: NESSA HA Performed By: Gabriele Andres Measurements and Calculations Right Left EMERGENCY MEDICINE MEDICAL DIRECTOR PSV 227.3 187.6 cm/sec Prox PFA PSV 107.5 115.0 cm/sec Prox SFA PSV 143.4 151.9 cm/sec Mid SFA PSV -121.0 -122.2cm/sec Dist SFA PSV -99.2 -97.4 cm/sec Prox Pop A PSV 76.6 66.4 cm/sec Dist HELENE PSV 126.4 108.7 cm/sec Dist POKE IN PSV 132.0 153.2 cm/sec Sohail Pedis PSV 55.6 73.9 cm/sec Right Side Arterial Evaluation Normal velocity and triphasic waveforms noted from the Common Femoral artery to the infrageniculate vessels . . Ankle Brachial index not ordered. Left Side Arterial Evaluation the Common Femoral artery to the infrageniculate vessels . . Ankle Brachial index not ordered. Interpretation Summary No hemodynamically significant lesions in the bilateral lower extremities, on duplex imaging, at rest. : NESSA HA > Marquis Devine
== END ==
LOC: SP 08:20
PROVIDERS: ATTEND Internal Medicine Geriatric Medicine
DX: E11.43 Type 2 diabetes mellitus with diabetic autonomic (poly)neuropathy (principal)
CPT/HCPCS: 93880; 93925

== ENCOUNTER 2019-03-25 09:50 | Day surgery (SDC) | payer MEDICARE, MEDICAID ==
[2019-03-25] MEDS ORDERED: PROPOFOL INJ 200 MG/20 ML VIAL IV ONE (10:39)
[2019-03-25] MEDS ORDERED: GLYCOPYRROLATE 1 MG/5 ML VIAL ONE (10:56)
[2019-03-25] MEDS ORDERED: PROMETHAZINE HCL INJ 25 MG/1 ML VIAL IV PRN (11:10)
[2019-03-25] MEDS ORDERED: DIPHENHYDRAMINE HCL 50 MG/ML VIAL IV PRN (11:10)
[2019-03-25] MEDS ORDERED: ONDANSETRON HCL INJ/PF 4 MG/2 ML SDV IV PRN (11:10)
[2019-03-25] MEDS ORDERED: MEPERIDINE HCL/PF INJ 25 MG/1 ML DISP.SYRIN IV PRN (11:10)
[2019-03-25] MEDS ORDERED: FENTANYL CITRATE INJ/PF 100 MCG/2 ML AMPUL IV PRN ×3 (11:10)
[2019-03-25 11:24] LABS: INTERNATIONAL RATION (INR) 1.13; PROTHROMBIN TIME 14.6 SEC (11.4-15.4)
[2019-03-25 14:23] VITALS: BP 140/68
--- NOTE | 2019-03-26 09:14 | Operative Report ---
Operative Report DATE OF SURGERY: 03/25/19 Operative Report: Risks, benefits and alternatives of the procedure including the risk of bleeding, perforation requiring surgery have been explained to the patient in detail informed consent was obtained. Patient is taken back to the operating room placed in a left, lateral decubital position. Timeout was called. Propofol medication is administered. Rectal examination is done which did not reveal any masses, tears or fissures. An Olympus videoscope was inserted into the patient's rectum. Scope was then carefully advanced all the way to the cecum. Cecum was identified by the usual anatomical landmarks including the ileocecal valve as well as the appendiceal office. Photodocumentation is obtained. Scope was then sequentially pulled back via the various segments of the colon including the ascending colon, hepatic flexure, transverse colon, splenic flexure, descending colon finding to the rectosigmoid portions of the colon. Retroflexion maneuvers performed. PREOPERATIVE DIAGNOSIS: personal history of polyp POSTOPERATIVE DIAGNOSIS: large polyp in ascending colon removed via snare polypectomy and retrived with Bazzi net. endoclips placed to secure base of resected polyp to reduce the risk of post polypectomy bleeding since patient has be restarted on anticoagulation. Transverse colon polyp similarly removed via snare. internal hemorrhoids OPERATION: Colonoscopy with snare polypectomy SURGEON: HUONG JAIN ANESTHESIA: LMAC TISSUE REMOVED OR ALTERED: as noted above COMPLICATIONS: none ESTIMATED BLOOD LOSS: none INTRAOPERATIVE FINDINGS: as noted above PROCEDURE: patient tolerated her procedure well did not have any post procedure complications patient is discharged in good condition resume previous diet resume previous activity level follow up on biopsy patient is instructed to go to ED or call the office if there are any further problems or questions depending on pathology , will need surveillance next year
== END 2019-03-25 14:00 | disposition home or self-care (01) ==
LOC: OROUT 09:50
PROVIDERS: ATTEND Internal Medicine Gastroenterology
DX: Z12.11 Encounter for screening for malignant neoplasm of colon (principal); D12.2 Benign neoplasm of ascending colon; D12.3 Benign neoplasm of transverse colon; Z86.010 Personal history of colon polyps; E11.9 Type 2 diabetes mellitus without complications; E78.5 Hyperlipidemia, unspecified; I10 Essential (primary) hypertension; Z79.899 Other long term (current) drug therapy; Z79.84 Long term (current) use of oral hypoglycemic drugs; Z79.01 Long term (current) use of anticoagulants
CPT/HCPCS: 45385; 36415; 82962; 84132; 85610; 85730; 88305 ×2; 00811; J2704; J3490; 811